=== PATIENT | female | born 1955 | race Caucasian/White ===

== ENCOUNTER 2018-02-09 14:44 | Inpatient (IN) | payer BC, OTHER ==
[2018-02-09] MEDS ORDERED: Rivaroxaban 10 MG Tab PO ONE (15:09)
--- NOTE | 2018-02-09 15:17 | EDM.PDOC ---
ED HPI GENERAL MEDICAL PROBLEM - General Chief Complaint: Respiratory Problem Stated Complaint: PE Time Seen by Provider: 02/09/18 15:10 Source of Information: Reports: Patient History Limitations: Reports: No Limitations - History of Present Illness INITIAL COMMENTS - FREE TEXT/NARRATIVE: 62-year-old female attends the ED from the [facility]. Patient was seen earlier in the walk-in clinic with a 2 week history of dyspnea on minimal exertion which was gradually worsening. This was a nonproductive cough no fever or chills. Salas is a never smoker. He denies any chest pain even with coughing. No pleuritic component to her pain no hemoptysis. No recent travel history. No history of DVT. Part of her workup included a d-dimer which was positive at 5.51 I believe. Her BNP was also mildly elevated at 300. This protuberance precipitated a CT pulmonary angiogram which was read by radiologist at [facility] in [place]. Head if he identified a large clot burden involving both lower lobes of the lungs and a small pulmonary infarct in the left lower lobe. He reports multiple filling defects within segmental and subsegmental pulmonary arteries in both the right low left lower lobes bilaterally. Additionally there is segmental pulmonary emboli within the right middle lobe there is evidence of right heart strain with deviation of the intraventricular septum to the left indicating acute pulmonary hypertension is also reflux of contrast within the hepatic veins no pleural effusions are pneumothoraces are identified. No pathologic-appearing axillary or mediastinal nodes. Visualized portions of the upper abdomen were reported to be normal. Patient has a history of hypothyroidism and hypertension and bipolar affective disorder. She reports dyspnea walking down the hallway of their home. She reports dyspnea going up half a flight of stairs i.e. 8 stairs. Onset: Gradual (Symptoms have been present for over 2 weeks and gradually worsening.) Duration: Week(s):, Getting Worse Location: Reports: Chest Quality: Reports: Other (Short of breath on minimal exertion.) Severity: Moderate (Moderate to severe) Improves with: Reports: Rest Worsens with: Reports: Movement Context: Reports: Other (Gradually worsening dyspnea over the last 2 weeks.). Denies: Activity, Exercise, Lifting, Sick Contact, Trauma Associated Symptoms: Reports: Cough, Shortness of Breath (On minimal exertion), Weakness. Denies: Confusion, Chest Pain, cough w sputum (Cough no worse than normal and is nonproductive), Diaphoresis, Fever/Chills, Headaches, Loss of Appetite, Malaise, Nausea/Vomiting, Rash, Seizure, Syncope Treatments DRUG ENFORCEMENT ADMINISTRATION AGENT: Reports: Other (see below) (Feels generally weak. No new medications.) - Related Data Allergies Allergy/AdvReac Type Severity Reaction Status Date / Time No Known Allergies Allergy Verified 02/09/18 17:37 Home Meds: Home Meds ARIPiprazole [Abilify] 10 mg PO DAILY 02/09/18 [History] Calcium Carb/Mag Ox/Zinc Sulf [Anrkbcb-Mbrbuniib-Mxof Tablet] 1 tab PO BEDTIME 02/09/18 [History] Cholecalciferol (Vitamin D3) [D3-2000] 2,000 units PO DAILY 02/09/18 [History] Cyanocobalamin (Vitamin B12) [Vitamin B12] 500 mcg PO DAILY 02/09/18 [History] Levothyroxine [Synthroid] 88 mcg PO DAILY 02/09/18 [History] Lisinopril/Hydrochlorothiazide [Lisinopril-HCTZ 10-12.5 MG] 1 tab PO ACDINNER [History] Melatonin 1 tab PO BEDTIME 02/09/18 [History] Multivitamin [Multivitamins] 1 tab PO DAILY 02/09/18 [History] Naproxen Sodium [Aleve] 220 mg PO BID 02/09/18 [History] Sertraline [Zoloft] 100 mg PO BEDTIME 02/09/18 [History] buPROPion [Wellbutrin] 100 mg PO 12 02/09/18 [History] buPROPion [Wellbutrin] 200 mg PO QAM 02/09/18 [History] Past Medical History Cardiovascular History: Reports: Hypertension Gastrointestinal History: Reports: Other (See Below) Other Gastrointestinal History: abnormal liver enzymes--- fatty liver disease. Psychiatric History: Reports: Depression (Major depression fairly well controlled with Abilify for the last year. Feels more stable on this medication and she did SSRIs. 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 Denies: Fever, Chills, Decreased Appetite, Weight Loss HEENT: Reports: Glasses Respiratory: Reports: Shortness of Breath, Cough. Denies: Wheezing, Pleuritic Chest Pain (See history of present illness), Sputum, Hemoptysis Cardiovascular: Reports: Blood Pressure Problem (Is chronically hypertensive and apparently is well controlled on lisinopril 10 mg daily), Dyspnea on Exertion (Mild edema in her lower extremities), Edema. Denies: Chest Pain, Claudication, Lightheadedness, Orthopnea, Palpitations ( particularly over the last 2 weeks.) Endocrine: Reports: Fatigue GI/Abdominal: Reports: Constipation ([place] to be secondary to medication usage.) . Denies: Abdominal Pain : Reports: Incontinence (Stress induced) Musculoskeletal: Reports: Back Pain, Joint Pain (Knees and hips at times) Skin: Reports: No Symptoms Neurological: Reports: Difficulty Walking, Weakness. Denies: Confusion, Dizziness, Headache, Numbness, Syncope, Tingling Psychiatric: Reports: Anxiety, Other (Chronic major depression she feels overall fairly well controlled on Abilify for the last year) Hematologic/Lymphatic: Reports: No Symptoms Immunologic: Reports: No Symptoms ED EXAM, GENERAL - Physical Exam Exam: See Below Exam Limited By: No Limitations General Appearance: Alert, WD/WN, Moderate Distress (She is hypoxic on room air at 85%. Placed on O2 at 4 L/m to achieve O2 sats of 97%.), Other Eye Exam: Bilateral Eye: Normal Inspection Throat/Mouth: Normal Inspection, Normal Lips, Normal Teeth, Normal Oropharynx Head: Atraumatic, Normocephalic Neck: Normal Inspection, Supple, Non-Tender, Full Range of Motion. No: Carotid Bruit, Lymphadenopathy (L), Lymphadenopathy (R) Respiratory/Chest: Lungs Clear, Normal Breath Sounds, No Accessory Muscle Use, Chest Non-Tender, Respiratory Distress (Mild tachypnea at rest 20-24/m. O2 sats 85% on room air.). No: Rales, Rhonchi, Wheezing Cardiovascular: Regular Rate, Rhythm, Other (Trace edema in both lower extremities.) Peripheral Pulses: 2+: Posterior Tibial (L), Posterior Tibial (R), Dorsalis Pedis (L), Dorsalis Pedis (R) GI/Abdominal: Normal Bowel Sounds, Soft, Non-Tender, No Organomegaly, No Abnormal Bruit, Pelvis Stable, Other (Abdominal girth limits ability to palpate solid organs.) Extremities: Pedal Edema (Trace edema both lower extremities. Graded is 1+.), Other (She does have evidence of bilateral venous insufficiency with brawny discoloration of both lower extremities.) Neurological: Alert ( No popliteal space tenderness no pain on palpation of the midline of either calf to suggest a DVT.), Oriented, CN II-XII Intact, Normal Cognition Psychiatric: Normal Affect, Normal Mood Skin Exam: Warm, Dry, Intact, Normal Color, No Rash Course - Vital Signs Last Recorded V/S: Last Vital Signs Temp 36.4 C 02/09/18 14:49 Pulse 95 02/09/18 14:49 Resp 20 02/09/18 14:49 BP 146/84 H 02/09/18 14:49 Pulse Ox 85 L 02/09/18 14:49 - Orders/Labs/Meds Orders: Active Orders 24 hr Category Date Time Status EKG Documentation Completion [RC] ASDIRECTED Care 02/09/18 16:17 Active ANTITHROMBIN ACTIVITY [REF] Routine Lab 02/09/18 15:42 Received LUPUS ANTICOAGULANT PANEL [REF] Routine Lab 02/09/18 15:42 Received PROTEIN C-FUNCTIONAL [REF] Stat Lab 02/09/18 15:16 Ordered PROTEIN S-FUNCTIONAL [REF] Stat Lab 02/09/18 15:16 Ordered VON WILLEBRAND PROFILE [REF] Stat Lab 02/09/18 15:10 Ordered EKG 12 Lead [EK] Stat Ther 02/09/18 16:17 Ordered Medication Orders Acetaminophen (Tylenol) 650 mg PO Q4H PRN PRN Reason: Pain (Mild 1-3)/fever Bisacodyl (Dulcolax) 5 mg PO DAILY PRN PRN Reason: Constipation Docusate Sodium (Colace) 100 mg PO BID PRN PRN Reason: Constipation Hydromorphone HCl (Dilaudid) 0.25 mg IVPUSH Q2H PRN PRN Reason: Pain (severe 7-10) Magnesium Hydroxide (Milk Of Magnesia) 30 ml PO Q12H PRN PRN Reason: Constipation Ondansetron HCl (Zofran Odt) 4 mg PO Q4H PRN PRN Reason: nausea, able to take PO Ondansetron HCl (Zofran) 4 mg IV Q4H PRN PRN Reason: Nausea/Vomiting Oxycodone/Acetaminophen (Percocet 325-5 Mg) 1 tab PO Q4H PRN PRN Reason: Pain (moderate 4-6) Polyethylene Glycol (Miralax) 17 gm PO DAILY PRN PRN Reason: Constipation Senna/Docusate Sodium (Senna Plus) 1 tab PO BID PRN PRN Reason: Constipation Temazepam (Restoril) 7.5 mg PO BEDTIME PRN PRN Reason: Sleep Meds: Medications Generic Name Dose Route Start Last Admin Trade Name Freq PRN Reason Stop Dose Admin Acetaminophen 650 mg 02/09/18 18:38 Tylenol PO Q4H PRN Pain (Mild 1-3)/fever Bisacodyl 5 mg 02/09/18 18:38 Dulcolax PO DAILY PRN Constipation Docusate Sodium 100 mg 02/09/18 18:38 Colace PO BID PRN Constipation Hydromorphone HCl 0.25 mg 02/09/18 18:38 Dilaudid IVPUSH Q2H PRN Pain (severe 7-10) Magnesium Hydroxide 30 ml 02/09/18 18:38 Milk Of Magnesia PO Q12H PRN Constipation Ondansetron HCl 4 mg 02/09/18 18:38 Zofran Odt PO Q4H PRN nausea, able to take PO Ondansetron HCl 4 mg 02/09/18 18:38 Zofran IV Q4H PRN Nausea/Vomiting Oxycodone/Acetaminophen 1 tab 02/09/18 18:38 Percocet 325-5 Mg PO Q4H PRN Pain (moderate 4-6) Polyethylene Glycol 17 gm 02/09/18 18:38 Miralax PO DAILY PRN Constipation Senna/Docusate Sodium 1 tab 02/09/18 18:38 Senna Plus PO BID PRN Constipation Temazepam 7.5 mg 02/09/18 18:38 Restoril PO BEDTIME PRN Sleep Discontinued Medications Generic Name Dose Route Start Last Admin Trade Name Freq PRN Reason Stop Dose Admin Rivaroxaban 20 mg 02/09/18 15:09 02/09/18 15:33 Xarelto PO 02/09/18 15:10 20 mg ONETIME ONE Administration - Radiology Interpretation Free Text/Narrative:: 62-year-old female sent across from [facility] by Dr. Butts. She had attended the clinic this morning was identified to have shortness of breath on minimal exertion for the last 2 weeks. He was 87% O2 sats on room air. Precipitated lab work which identified an elevated d-dimer at 5.5. This in turn precipitated a CT pulmonary angiogram which confirmed multiple pulmonary emboli involving all 5 lobes of her lung and a wedge-shaped infiltrate left lower lobe suggesting a pulmonary infarct. There is also evidence clinically on the CT exam that she has acute pulmonary hypertension with deviation of the midline of the heart to the left side and reflux of contrast into the hepatic veins. This indicates that the there is trouble with blood being able to return to the right side of the heart. This would suggest very high right pulmonary arterial pressures. Clot load is felt to best be very high. However her blood pressure is maintained. She is therefore not a candidate for acute thrombolytic intervention. She has no past history of DVT. She's had no pain in her legs. She is not all that active at home. She is a [id number]-uh-pukj . She is relatively asymptomatic in terms no chest pain no cough no hemoptysis. She exhibits shortness of breath on minimal exertion. She was initially placed on 4 L/m by nasal cannula of oxygen which achieved O2 sats of 97%. Subsequently reduced to 3 L/m and achieving O2 sats of 96%. Plan she'll be given 20 mg of Zaroxolyn immediately. Usually she should be treated with 15 mg twice daily for the first 3 weeks then 20 mg once daily. She will need to be admitted to the hospital primarily because of hypoxemia and need for oxygen treatment. She will have ultrasound done on both lower extremities to see if we can identify source of her pulmonary emboli.. - Re-Assessments/Exams Free Text/Narrative Re-Assessment/Exam: 02/09/18 16:10: Case discussed with Dr. Lee and patient will be admitted to the [facility] surgery floor on telemetry. 02/09/18 17:12 the initial report from the laser/electro optics technician indicates that there is some clot in the right common femoral vein but this is compressible. Rather acute. He also identified a clot in the left leg again that was nonobstructive. I will await the final radiologist's report in this regard. 02/09/18 18:52labs were already collected at [facility] and are on the chart. I had done a PT which was 16.1 and INR came back at 1.49 i.e. some degree of auto anticoagulation. PTT is slightly elevated at 34. Of note and much of this is a laboratory error or does this patient is exhibiting some signs of auto anticoagulation which would suggest a liver dysfunction. Departure - Departure Time of Disposition: 18:20 Disposition: Admitted As Inpatient 67 Condition: Serious Clinical Impression: Bilateral pulmonary embolism, Pulmonary hypertension, Elevated INR ( international normalized ratio) DVT, lower extremity, proximal Qualifiers: Chronicity: acute Laterality: right Qualified Code(s): I82.4Y1 - Acute embolism and thrombosis of unspecified deep veins of right proximal lower extremity DVT, lower extremity, distal, acute Qualifiers: Laterality: left Qualified Code(s): I82.4Z2 - Acute embolism and thrombosis of unspecified deep veins of left distal lower extremity - Discharge Information *PRESCRIPTION DRUG MONITORING PROGRAM REVIEWED*: Not Applicable *COPY OF PRESCRIPTION DRUG MONITORING REPORT IN PATIENT DAVIDSON: Not Applicable - My Orders Last 24 Hours: My Active Orders 02/09/18 15:10 VON WILLEBRAND PROFILE [REF] Stat 02/09/18 15:16 PROTEIN C-FUNCTIONAL [REF] Stat PROTEIN S-FUNCTIONAL [REF] Stat 02/09/18 15:42 ANTITHROMBIN ACTIVITY [REF] Routine LUPUS ANTICOAGULANT PANEL [REF] Routine 02/09/18 16:17 EKG Documentation Completion [RC] ASDIRECTED EKG 12 Lead [EK] Stat - Assessment/Plan Last 24 Hours: My Active Orders 02/09/18 15:10 VON WILLEBRAND PROFILE [REF] Stat 02/09/18 15:16 PROTEIN C-FUNCTIONAL [REF] Stat PROTEIN S-FUNCTIONAL [REF] Stat 02/09/18 15:42 ANTITHROMBIN ACTIVITY [REF] Routine LUPUS ANTICOAGULANT PANEL [REF] Routine 02/09/18 16:17 EKG Documentation Completion [RC] ASDIRECTED EKG 12 Lead [EK] Stat
--- NOTE | 2018-02-09 17:47 | US ---
Bilateral lower extremity deep venous ultrasound: Duplex and color flow imaging was obtained within the right and left common femoral, proximal greater saphenous, superficial femoral, popliteal, posterior tibial and peroneal veins. Technologist's note: Technically difficult study due to body habitus Findings: Partially occluding thrombus is identified within the right common femoral vein. Partially occluding thrombus is seen within the left popliteal vein. Intraluminal material is seen with lack of compression noted within the proximal greater saphenous vein on the right side which is felt compatible with obstructing thrombus. Other veins show normal phasic flow, augmentation and compression. Impression: 1. Partially occluding clot within the right common femoral vein with occluding clot within the proximal right greater saphenous vein. 2. Partially occluding clot within the left popliteal vein. Diagnostic code #5
[2018-02-09] MEDS ORDERED: Magnesium Hydroxide 400 MG/5 ML Susp 30 ML Cup PO PRN (18:38)
[2018-02-09] MEDS ORDERED: Ondansetron 4 MG/2 ML SDV IV PRN (18:38)
[2018-02-09] MEDS ORDERED: Acetaminophen 325 MG Tab PO PRN (18:38)
[2018-02-09] MEDS ORDERED: Docusate Sodium 100 MG Cap PO PRN (18:38)
[2018-02-09] MEDS ORDERED: Acetaminophen/oxyCODONE 325-5 MG Tab PO PRN (18:38)
[2018-02-09] MEDS ORDERED: HYDROmorphone 0.5 MG/0.5 ML SYRINGE IVPUSH PRN (18:38)
[2018-02-09] MEDS ORDERED: Bisacodyl 5 MG Tab PO PRN (18:38)
[2018-02-09] MEDS ORDERED: Temazepam 7.5 MG Cap PO PRN (18:38)
[2018-02-09] MEDS ORDERED: Polyethylene Glycol 3350 Powder 17 GM Packet PO PRN (18:38)
[2018-02-09] MEDS ORDERED: Ondansetron 4 MG Tab.DIS PO PRN (18:38)
[2018-02-09] MEDS ORDERED: HYDROmorphone 0.5 MG/0.5 ML Syringe IVPUSH PRN (18:50)
--- NOTE | 2018-02-09 19:05 | PCM.HP ---
H&P History of Present Illness - General Date of Service: 02/09/18 Admit Problem/Dx: Admission Diagnosis/Problem Admission Diagnosis/Problem Pulmonary embolism Source of Information: Patient, Provider History Limitations: Reports: No Limitations - History of Present Illness Initial Comments - Free Text/Narative: HPI: This is a 62 yo female with past medical hx/o HTN, abnormal liver enzymes/Fatty liver Dz, Bipolar affective disorder, Depression, Insomnia, Hypothyroidism, Morbid Obesity who was sent over from [facility] for bilateral PE and hypoxia 85% RA. She c/o 2 week gradually worsening dyspnea w/ minimal exertion and nonproductive cough. She denies F/C, pleuritic CP, hemoptysis, leg pain. She denies any recent travel or h/o DVT. Her workup at [facility] showed positive D-dimer of 5.51, slightly elevated BNP at 300. CT pulmonary angiogram read by Ramirezloly Ratliff shows bilateral PE with small infarct in left lower lobe and acute pulmonary HTN. Her workup in the ED shows elevated coagulation studies of PT 16.1, INR 1.49, aPTT 34. EKG in ED shows sinus rhythm with old anteroseptal infarct; no evidence of Afib or acute injury. Doppler U/S in ED shows partially occluding clot to right common femoral vein and left popliteal vein. Von Willebrand, Protein C and S, Antithrombin activity, Lupus pending. She is subsequently admitted to the medical floor. She is a Full Code. Her PCP is Dr. Mcginnis. - Related Data Allergies/Adverse Reactions: Allergies Allergy/AdvReac Type Severity Reaction Status Date / Time No Known Allergies Allergy Verified 02/09/18 17:37 Home Medications: Home Meds ARIPiprazole [Abilify] 10 mg PO DAILY 02/09/18 [History] Calcium Carb/Mag Ox/Zinc Sulf [Mclsrko-Uciyppjjk-Thig Tablet] 1 tab PO BEDTIME 02/09/18 [History] Cholecalciferol (Vitamin D3) [D3-2000] 2,000 units PO DAILY 02/09/18 [History] Cyanocobalamin (Vitamin B12) [Vitamin B12] 500 mcg PO DAILY 02/09/18 [History] Levothyroxine [Synthroid] 88 mcg PO DAILY 02/09/18 [History] Lisinopril/Hydrochlorothiazide [Lisinopril-HCTZ 10-12.5 MG] 1 tab PO ACDINNER [History] Melatonin 1 tab PO BEDTIME 02/09/18 [History] Multivitamin [Multivitamins] 1 tab PO DAILY 02/09/18 [History] Naproxen Sodium [Aleve] 220 mg PO BID 02/09/18 [History] Sertraline [Zoloft] 100 mg PO BEDTIME 02/09/18 [History] buPROPion [Wellbutrin] 100 mg PO 12 02/09/18 [History] buPROPion [Wellbutrin] 200 mg PO QAM 02/09/18 [History] Past Medical History HEENT History: Reports: Cataract, Other (See Below) Other HEENT History: wears glasses Cardiovascular History: Reports: Hypertension Other Cardiovascular History: current pulmonary emboli Respiratory History: Reports: Other (See Below) Other Respiratory History: current pulmonary emboli Gastrointestinal History: Reports: Other (See Below) Other Gastrointestinal History: abnormal liver enzymes--- fatty liver disease. Genitourinary History: Reports: Other (See Below) Other Genitourinary History: urinary frequency Musculoskeletal History: Reports: Osteoarthritis, Other (See Below) Other Musculoskeletal History: restless legs Psychiatric History: Reports: Depression (Major depression fairly well controlled with Abilify for the last year. Feels more stable on this medication and she did SSRIs. 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 Denies: Fever, Chills HEENT: Reports: Glasses Pulmonary: Reports: Shortness of Breath, Cough. Denies: Pleuritic Chest Pain, Hemoptysis Cardiovascular: Reports: Dyspnea on Exertion (minimal exertion), Edema (1+ bilaterally), Blood Pressure Problem. Denies: Chest Pain, Palpitations, Orthopnea Gastrointestinal: Reports: No Symptoms. Denies: Abdominal Pain, Diarrhea, Nausea, Vomiting Genitourinary: Reports: No Symptoms Musculoskeletal: Reports: Back Pain, Joint Pain (knees, hips intermittent) Skin: Reports: No Symptoms Psychiatric: Reports: Anxiety Neurological: Reports: Difficulty Walking, Weakness Hematologic/Lymphatic: Reports: No Symptoms Immunologic: Reports: No Symptoms Exam - Exam Exam: See Below - Vital Signs Vital Signs: Last Vital Signs Temp 97.7 F 02/09/18 17:35 Pulse 80 02/09/18 17:35 Resp 20 02/09/18 17:35 BP 132/82 02/09/18 17:35 Pulse Ox 92 L 02/09/18 18:38 Weight: 265 lb 3.2 oz - Exam Quality Assessment: Supplemental Oxygen (2L NC), DVT Prophylaxis. No: Urinary Catheter General: Alert, Oriented, Cooperative, Mild Distress HEENT: PERRLA, Hearing Intact, Mucosa Moist & [place], Nares Patent, Normal Nasal Septum, Posterior Pharynx Clear, Conjunctiva Clear, EOMI, EACs Clear, TMs Clear Neck: Supple, Trachea Midline, 2 Lungs: Clear to Auscultation. No: Normal Respiratory Effort (tachypneic), Rales , Rhonchi, Wheezing Cardiovascular: Regular Rate, Regular Rhythm GI/Abdominal Exam: Normal Bowel Sounds, Soft, Non-Tender, Pelvis Stable (Female) Exam: Deferred Rectal (Female) Exam: Deferred Back Exam: Normal Inspection, Full Range of Motion, NT Extremities: Normal Range of Motion, Non-Tender, Normal Capillary Refill, Pedal Edema (1+ bilaterally), Other (bilateral venous insufficiency; brawny) Peripheral Pulses: 1+: Posterior Tibial (L), Posterior Tibial (R), Dorsalis Pedis (L), Dorsalis Pedis (R) Skin: Warm, Dry, Intact Neurological: Cranial Nerves Intact (grossly) Neuro Extensive - Mental Status: Alert, Oriented x3, Normal Mood/Affect, Normal Cognition Psychiatric: Alert, Normal Affect, Normal Mood - Patient Data Lab Results Last 24 hrs: Laboratory Results - last 24 hr 02/09/18 Range/Units 17:55 PT 16.1 H (9.5-12.1) SECONDS INR 1.49 APTT 34 H (24-31) SECONDS Result Diagrams: 02/09/18 17:55 02/09/18 17:55 - Problem List (1) Bilateral pulmonary embolism SNOMED Code(s): 38456027 ICD Code: I26.99 - OTHER PULMONARY EMBOLISM WITHOUT ACUTE COR PULMONALE Status: Acute Priority: High Current Visit: Yes (2) DVT, lower extremity, distal, acute SNOMED Code(s): 403784474334 ICD Code: I82.4Z9 - ACUTE EMBLSM AND THOMBOS UNSP DEEP VN UNSP DISTAL LOW EXTRM Status: Acute Priority: High Current Visit: Yes Qualifiers: Laterality: left Qualified Code(s): I82.4Z2 - Acute embolism and thrombosis of unspecified deep veins of left distal lower extremity (3) DVT, lower extremity, proximal SNOMED Code(s): 900881082 ICD Code: I82.4Y9 - ACUTE EMBLSM AND THOMBOS UNSP DEEP VN UNSP PROX LOW EXTRM Status: Acute Priority: High Current Visit: Yes Qualifiers: Chronicity: acute Laterality: right Qualified Code(s): I82.4Y1 - Acute embolism and thrombosis of unspecified deep veins of right proximal lower extremity (4) Elevated INR (international normalized ratio) SNOMED Code(s): 502607511 ICD Code: R79.1 - ABNORMAL COAGULATION PROFILE Status: Acute Priority: High Current Visit: Yes (5) Pulmonary hypertension SNOMED Code(s): 07209878 ICD Code: I27.20 - PULMONARY HYPERTENSION, UNSPECIFIED Status: Acute Priority: High Current Visit: Yes Problem List Initiated/Reviewed/Updated: Yes Orders Last 24hrs: Active Orders 24 hr Category Date Time Status Admission Status [Patient Status] [ADT] Routine ADT 02/09/18 16:45 Active Ambulate [RC] ASDIRECTED Care 02/09/18 18:38 Ordered Cardiac Monitoring [RC] INTERMITTENT Care 02/09/18 18:39 Ordered EKG Documentation Completion [RC] ASDIRECTED Care 02/09/18 16:17 Active Height and Weight [RC] DAILY Care 02/09/18 18:38 Ordered Intake and Output [RC] QSHIFT Care 02/09/18 18:39 Ordered May Shower [RC] ASDIRECTED Care 02/09/18 18:38 Ordered Oxygen Therapy [RC] PRN Care 02/09/18 18:38 Ordered Pulse Oximetry [RC] PRN Care 02/09/18 18:39 Ordered VTE/DVT Education [RC] PER UNIT ROUTINE Care 02/09/18 18:38 Ordered Vital Signs [RC] Q4H Care 02/09/18 18:38 Ordered Consult to Dietary [Consult to Maintenance Specialist] [CONS] Cons 02/09/18 18:53 Ordered Routine Consult to Spiritual Care [CONS] Routine Cons 02/09/18 18:38 Ordered OT Evaluation and Treatment [CONS] Routine Cons 02/09/18 18:38 Ordered PT Evaluation and Treatment [CONS] Routine Cons 02/09/18 18:38 Ordered Respiratory Care Assess and Treatment [CONS] Routine Cons 02/09/18 18:38 Ordered Heart Healthy Diet [DIET] Diet 02/10/18 Breakfast Active Abdomen wo Cont [CT] Routine Exams 02/09/18 18:49 Ordered Echo Comp wo Cont [US] Routine Exams 02/09/18 18:44 Ordered ANTITHROMBIN ACTIVITY [REF] Routine Lab 02/09/18 15:42 Received BASIC METABOLIC PANEL,BMP [CHEM] AM Lab 02/10/18 05:11 Ordered BASIC METABOLIC PANEL,BMP [CHEM] AM Lab 02/11/18 05:11 Ordered BASIC METABOLIC PANEL,BMP [CHEM] AM Lab 02/12/18 05:11 Ordered BASIC METABOLIC PANEL,BMP [CHEM] AM Lab 02/13/18 05:11 Ordered BASIC METABOLIC PANEL,BMP [CHEM] AM Lab 02/14/18 05:11 Ordered C-REACTIVE PROTEIN [CHEM] AM Lab 02/10/18 05:11 Ordered C-REACTIVE PROTEIN [CHEM] AM Lab 02/11/18 05:11 Ordered C-REACTIVE PROTEIN [CHEM] AM Lab 02/12/18 05:11 Ordered C-REACTIVE PROTEIN [CHEM] AM Lab 02/13/18 05:11 Ordered C-REACTIVE PROTEIN [CHEM] AM Lab 02/14/18 05:11 Ordered CBC WITH AUTO DIFF [HEME] AM Lab 02/10/18 05:11 Ordered CBC WITH AUTO DIFF [HEME] AM Lab 02/11/18 05:11 Ordered CBC WITH AUTO DIFF [HEME] AM Lab 02/12/18 05:11 Ordered CBC WITH AUTO DIFF [HEME] AM Lab 02/13/18 05:11 Ordered CBC WITH AUTO DIFF [HEME] AM Lab 02/14/18 05:11 Ordered LUPUS ANTICOAGULANT PANEL [REF] Routine Lab 02/09/18 15:42 Received MAGNESIUM [CHEM] AM Lab 02/10/18 05:11 Ordered MAGNESIUM [CHEM] AM Lab 02/11/18 05:11 Ordered MAGNESIUM [CHEM] AM Lab 02/12/18 05:11 Ordered MAGNESIUM [CHEM] AM Lab 02/13/18 05:11 Ordered MAGNESIUM [CHEM] AM Lab 02/14/18 05:11 Ordered PROTEIN C-FUNCTIONAL [REF] Stat Lab 02/09/18 15:16 Ordered PROTEIN S-FUNCTIONAL [REF] Stat Lab 02/09/18 15:16 Ordered TSH [CHEM] Routine Lab 02/09/18 18:44 Ordered VON WILLEBRAND PROFILE [REF] Stat Lab 02/09/18 15:10 Ordered ARIPiprazole Med 02/10/18 09:00 Ordered 10 mg PO DAILY Acetaminophen [Tylenol] Med 02/09/18 18:38 Ordered 650 mg PO Q4H PRN Acetaminophen/oxyCODONE [Percocet 325-5 MG] Med 02/09/18 18:38 Ordered 1 tab PO Q4H PRN Bisacodyl [Dulcolax] Med 02/09/18 18:38 Ordered 5 mg PO DAILY PRN Calcium Carb/Mag Ox/Zinc Sulf [Eiugoci-Rfgnadkpv-Nrhl Med 02/09/18 21:00 Ordered Tablet] 1 tab PO BEDTIME Cholecalciferol (Vitamin D3) [D3-2000] Med 02/10/18 09:00 Ordered 2,000 units PO DAILY Cyanocobalamin (Vitamin B12) Med 02/10/18 09:00 Ordered 500 mcg PO DAILY Docusate Sodium [Colace] Med 02/09/18 18:38 Ordered 100 mg PO BID PRN Docusate Sodium/Sennosides [Senna Plus] Med 02/09/18 18:38 Ordered 1 tab PO BID PRN HYDROmorphone [Dilaudid] Med 02/09/18 18:50 Active 0.25 mg IVPUSH Q2H PRN Levothyroxine [Synthroid] Med 02/10/18 09:00 Ordered 88 mcg PO DAILY Lisinopril/Hydrochlorothiazide Med 02/10/18 16:00 Ordered 1 tab PO ACDINNER Magnesium Hydroxide [Milk of Magnesia] Med 02/09/18 18:38 Ordered 30 ml PO Q12H PRN Multivitamin [Multivitamins] Med 02/10/18 09:00 Ordered 1 tab PO DAILY Ondansetron [Zofran ODT] Med 02/09/18 18:38 Ordered 4 mg PO Q4H PRN Ondansetron [Zofran] Med 02/09/18 18:38 Ordered 4 mg IV Q4H PRN Polyethylene Glycol 3350 [MiraLAX] Med 02/09/18 18:38 Ordered 17 gm PO DAILY PRN Rivaroxaban [Xarelto] Med 02/09/18 21:00 Ordered 15 mg PO BID Sertraline Med 02/09/18 21:00 Ordered 100 mg PO BEDTIME Temazepam [Restoril] Med 02/09/18 18:38 Ordered 7.5 mg PO BEDTIME PRN buPROPion Med 02/10/18 12:00 Ordered 100 mg PO 12 buPROPion Med 02/10/18 08:00 Ordered 200 mg PO QAM hydroCHLOROthiazide Med 02/10/18 16:00 Active 12.5 mg PO ACDINNER Antiembolic Hose [OM.PC] Per Unit Routine Oth 02/09/18 18:40 Ordered EKG 12 Lead [EK] Stat Ther 02/09/18 16:17 Ordered Medication Orders Acetaminophen (Tylenol) 650 mg PO Q4H PRN PRN Reason: Pain (Mild 1-3)/fever Aripiprazole (Abilify) 10 mg PO DAILY MALIK Bisacodyl (Dulcolax) 5 mg PO DAILY PRN PRN Reason: Constipation Cholecalciferol (Vitamin D3) 2,000 units PO DAILY [facility] Cyanocobalamin (Vitamin B12) 500 mcg PO DAILY MALIK Docusate Sodium (Colace) 100 mg PO BID PRN PRN Reason: Constipation Hydrochlorothiazide (Hydrochlorothiazide) 12.5 mg PO ACDINNER MALIK Hydromorphone HCl (Dilaudid) 0.25 mg IVPUSH Q2H PRN PRN Reason: Pain (severe 7-10) Levothyroxine Sodium (Synthroid) 88 mcg PO ACBREAKFAST MALIK Lisinopril (Prinivil) 10 mg PO ACDINNER MALIK Magnesium Hydroxide (Milk Of Magnesia) 30 ml PO Q12H PRN PRN Reason: Constipation Multivitamins (Thera) 1 each PO DAILY MALIK Non-Formulary Medication (Bupropion) 100 mg PO 12 MALIK Non-Formulary Medication (Bupropion) 200 mg PO QAM MALIK Non-Formulary Medication (Calcium Carb/Mag Ox/Zinc Sulf [Wvtmbue-Gkkpmvsiy-Brek Tablet]) 1 tab PO BEDTIME MALIK Ondansetron HCl (Zofran Odt) 4 mg PO Q4H PRN PRN Reason: nausea, able to take PO Ondansetron HCl (Zofran) 4 mg IV Q4H PRN PRN Reason: Nausea/Vomiting Oxycodone/Acetaminophen (Percocet 325-5 Mg) 1 tab PO Q4H PRN PRN Reason: Pain (moderate 4-6) Polyethylene Glycol (Miralax) 17 gm PO DAILY PRN PRN Reason: Constipation Rivaroxaban (Xarelto) 15 mg PO BID MALIK Senna/Docusate Sodium (Senna Plus) 1 tab PO BID PRN PRN Reason: Constipation Sertraline HCl (Zoloft) 100 mg PO BEDTIME MALIK Temazepam (Restoril) 7.5 mg PO BEDTIME PRN PRN Reason: Sleep Assessment/Plan Comment:: I/P: Acute: Bilateral Pulmonary Embolism * 2 week h/o gradually worsening dyspnea w/ minimal exertion, nonproductive cough, no F/C, no pleuritic CP, no hemoptysis, no leg pain. * Risk factors: Morbid Obesity, immobilization (not very active at home) * No: recent surgery, travel, trauma, initiation of hormone therapy (stopped estrogen therapy over 1 year ago for menopause), active cancer, h/o DVT, Afib. She has never smoked. * Hypoxic 85% on RA--> 92% 2L NC * Worked up at [facility]: * D-dimer which was positive at 5.51 * BNP was also mildly elevated at 300 * CT pulmonary angiogram (read by radiologist at [facility]): * Large clot burden involving both lower lobes of the lungs and a small pulmonary infarct in the left lower lobe. * Multiple filling defects within segmental and subsegmental pulmonary arteries in both the right and left lower lobes bilaterally. * Segmental pulmonary emboli within the right middle lobe. * Evidence of right heart strain with deviation of the intraventricular septum to the left indicating acute pulmonary hypertension. * Reflux of contrast within the hepatic veins, no pleural effusions are pneumothoraces are identified. No pathologic-appearing axillary or mediastinal nodes. Visualized portions of the upper abdomen were reported to be normal. * EKG in ED--> Sinus rhythm, old anteroseptal infarct; no evidence of Afib * Doppler U/S in ED: * 1. Partially occluding clot within the right common femoral vein with occluding clot within the proximal right greater saphenous vein. * 2. Partially occluding clot within the left popliteal vein. * Xaralto 20mg PO started in ED--> Continue Xaralto 15mg BID starting @2100 x21 days followed by 20mg daily * Von Willebrand, Protein C and S, Antithrombin activity, Lupus pending * ECHO in AM * CT abdomen r/o malignancy pending Pulmonary HTN * Likely 2/2 above * Indicated by CT angiogram * Unsure if SHAHAB; recommend sleep study * ECHO in AM Elevated Coagulation Studies * PT 16.1, INR 1.49, PTT 34 S/P VTACH * 16 beats VTACH at around 18:20 this evening * Asymptomatic, no history of prior episodes * Monitor on telemetry Chronic: HTN Abnormal liver enzymes/Fatty liver Dz Bipolar affective disorder Depression Insomnia Hypothyroidism * TSH pending Morbid Obesity BMI 45.5 Plan: Transferred to Med Surg She remains stable Anticoagulation Other orders as indicated above Routine AM labs Heart Healthy Diet DVT Prophylaxis: Xaralto GI Prophylaxis: Pepcid Code Status: Full Code; PCP: Dr. Mcginnis
[2018-02-09] MEDS: Famotidine 20 MG Tab PO SCH (20:12)
[2018-02-09] MEDS: Rivaroxaban 10 MG Tab PO SCH (20:13)
[2018-02-09] MEDS ORDERED: [UNRECOGNIZED DRUG - OTHER] PO SCH (21:00)
[2018-02-09] MEDS ORDERED: ZINC SULF PO SCH (21:00)
[2018-02-09] MEDS ORDERED: Sertraline 50 MG Tab PO SCH (21:00)
[2018-02-09] MEDS ORDERED: CALCIUM CARB PO SCH (21:00)
[2018-02-09] MEDS ORDERED: MAG OX PO SCH (21:00)
[2018-02-09] MEDS ORDERED: LORazepam 2 MG/ML SDV IVPUSH ONE (23:24)
[2018-02-09] MEDS ORDERED: Temazepam 7.5 MG Cap PO ONE (23:25)
[2018-02-09] MEDS ORDERED: Pramipexole 0.25 MG Tab PO ONE (23:45)
[2018-02-10] MEDS ORDERED: Levothyroxine 88 MCG Tab PO SCH (06:00)
[2018-02-10] MEDS ORDERED: buPROPion 100 MG Tab.SR PO SCH ×2 (08:00→12:00)
[2018-02-10] MEDS: Cholecalciferol (Vitamin D3) 1,000 Unit Tab PO SCH (08:49)
[2018-02-10] MEDS: Famotidine 20 MG Tab PO SCH ×2 (08:49→21:38)
[2018-02-10] MEDS: ARIPiprazole 10 MG Tab PO SCH (08:49)
[2018-02-10] MEDS: Multivitamins,Therapeutic Tab PO SCH (08:49)
[2018-02-10] MEDS: Cyanocobalamin (Vitamin B12) 1,000 MCG Tab PO SCH (08:50)
[2018-02-10] MEDS: Rivaroxaban 10 MG Tab PO SCH ×2 (08:51→21:39)
[2018-02-10] MEDS ORDERED: Magnesium Oxide 400 MG Tab PO ONE (09:00)
[2018-02-10] MEDS ORDERED: Iopamidol 612 MG/ML 150 ML Bottle IVPUSH ONE (09:04)
[2018-02-10] MEDS ORDERED: Sodium Chloride 0.9% 250 ML IV SCH (09:04)
[2018-02-10] MEDS ORDERED: Sodium Chloride 0.9% 10 ML Syringe FLUSH PRN (09:04)
[2018-02-10] MEDS ORDERED: Diatrizoate Meglumine/Diatrizoate Sodium 37% 120 ML Bottle PO ONE (09:04)
[2018-02-10] MEDS ORDERED: Sodium Chloride 0.9% 100 ML IV SCH (11:15)
--- NOTE | 2018-02-10 12:25 | PCM.PN ---
- General Info Date of Service: 02/10/18 Admission Dx/Problem (Free Text): Admission Diagnosis/Problem Admission Diagnosis/Problem Pulmonary embolism Subjective Update: Follow Up Functional Status: Reports: Pain Controlled, Tolerating Diet, Ambulating, Urinating - Review of Systems General: Reports: Fatigue, Malaise. Denies: Fever, Chills HEENT: Reports: No Symptoms Pulmonary: Reports: Shortness of Breath Cardiovascular: Reports: Edema. Denies: Chest Pain, Dyspnea on Exertion, Lightheadedness Gastrointestinal: Denies: Abdominal Pain, Nausea, Vomiting Genitourinary: Reports: No Symptoms Musculoskeletal: Reports: No Symptoms Skin: Denies: Cyanosis, Mottled, Pallor, Diaphoresis, Rash Neurological: Reports: Gait Disturbance. Denies: Confusion, Difficulty Walking , Weakness Psychiatric: Denies: Depression, Agitation, Hallucinations Systems Review Comment:: She did not rest well last night due to restless leg (chronic but worse last night). She was given, restoril low dose ativan and mirapex but did not help. Her vitals area stable. Her Mg is light low at 1.7. Her A1C is 6.70, TSH is 8.341 and HDL is slightly low at 24 on lipid panel. - Patient Data Vitals - Most Recent: Last Vital Signs Temp 36.2 C 02/10/18 08:43 Pulse 86 02/10/18 08:43 Resp 20 02/10/18 08:43 BP 134/76 02/10/18 08:43 Pulse Ox 95 02/10/18 08:00 Weight - Most Recent: 121.608 kg I&O - Last 24 Hours: Intake & Output 02/09/18 02/10/18 02/10/18 22:59 06:59 14:59 Intake Total 240 800 120 Balance 240 800 120 Lab Results Last 24 Hours: Laboratory Results - last 24 hr 02/09/18 02/09/18 02/09/18 Range/Units 17:55 17:55 17:55 WBC 11.55 H (3.98-10.04) K/mm3 RBC 5.13 (3.98-5.22) M/mm3 Hgb 14.4 (11.2-15.7) gm/L Hct 44.7 (34.1-44.9) % MCV 87.1 (79.4-94.8) fl MCH 28.1 (25.6-32.2) pg MCHC 32.2 (32.2-35.5) g/dl RDW Std Deviation 49.3 H (36.4-46.3) fL Plt Count 360 (182-369) K/mm3 MPV 11.1 (9.4-12.3) fl Neut % (Auto) 69.5 (34.0-71.1) % Lymph % (Auto) 18.8 L (19.3-51.7) % Bath % (Auto) 7.7 (4.7-12.5) % Eos % (Auto) 2.6 (0.7-5.8) Baso % (Auto) 1.0 (0.1-1.2) % Neut # (Auto) 8.02 H (1.56-6.13) K/mm3 Lymph # (Auto) 2.17 (1.18-3.74) K/mm3 Bath # (Auto) 0.89 H (0.24-0.36) K/mm3 Eos # (Auto) 0.30 (0.04-0.36) K/mm3 Baso # (Auto) 0.12 H (0.01-0.08) K/mm3 Manual Slide Review Abnormal smear PT 16.1 H (9.5-12.1) SECONDS INR 1.49 APTT 34 H (24-31) SECONDS Sodium (136-145) mEq/L Potassium (3.5-5.1) mEq/L Chloride (98-107) mEq/L Carbon Dioxide (21-32) mEq/L Anion Gap (5-15) BUN (7-18) mg/dL Creatinine (0.55-1.02) mg/dL Est Cr Clr Drug Dosing mL/min Estimated GFR (MDRD) (>60) mL/min BUN/Creatinine Ratio (14-18) Glucose (80-115) mg/dL Hemoglobin A1c (4.50-6.20) % Calcium (8.5-10.1) mg/dL Magnesium (1.8-2.4) mg/dl Total Bilirubin (0.2-1.0) mg/dL AST (15-37) U/L ALT (14-59) U/L Alkaline Phosphatase (46-116) U/L C-Reactive Protein (<1.0) mg/dL NT-Pro-B Natriuret Pep (0-125) pg/mL Total Protein (6.4-8.2) g/dl Albumin (3.4-5.0) g/dl Globulin gm/dL Albumin/Globulin Ratio (1-2) Triglycerides (<150) mg/dL Cholesterol (<200) mg/dL LDL Cholesterol Direct (<100) mg/dL HDL Cholesterol (40-59) mg/dL TSH 3rd Generation 8.341 H (0.358-3.74) uIU/mL 02/09/18 02/09/18 02/10/18 Range/Units 17:55 17:55 06:05 WBC 11.61 H (3.98-10.04) K/mm3 RBC 4.95 (3.98-5.22) M/mm3 Hgb 13.6 (11.2-15.7) gm/L Hct 42.7 (34.1-44.9) % MCV 86.3 (79.4-94.8) fl MCH 27.5 (25.6-32.2) pg MCHC 31.9 L (32.2-35.5) g/dl RDW Std Deviation 48.4 H (36.4-46.3) fL Plt Count 365 (182-369) K/mm3 MPV 10.7 (9.4-12.3) fl Neut % (Auto) 64.8 (34.0-71.1) % Lymph % (Auto) 19.0 L (19.3-51.7) % Bath % (Auto) 8.1 (4.7-12.5) % Eos % (Auto) 6.4 H (0.7-5.8) Baso % (Auto) 1.2 (0.1-1.2) % Neut # (Auto) 7.52 H (1.56-6.13) K/mm3 Lymph # (Auto) 2.21 (1.18-3.74) K/mm3 Bath # (Auto) 0.94 H (0.24-0.36) K/mm3 Eos # (Auto) 0.74 H (0.04-0.36) K/mm3 Baso # (Auto) 0.14 H (0.01-0.08) K/mm3 Manual Slide Review Abnormal smear PT (9.5-12.1) SECONDS INR APTT (24-31) SECONDS Sodium 137 (136-145) mEq/L Potassium 4.0 (3.5-5.1) mEq/L Chloride 100 (98-107) mEq/L Carbon Dioxide 20 L (21-32) mEq/L Anion Gap 21.0 H (5-15) BUN 40 H (7-18) mg/dL Creatinine 1.3 H (0.55-1.02) mg/dL Est Cr Clr Drug Dosing 39.24 mL/min Estimated GFR (MDRD) 42 (>60) mL/min BUN/Creatinine Ratio 30.8 H (14-18) Glucose 113 (80-115) mg/dL Hemoglobin A1c (4.50-6.20) % Calcium 9.5 (8.5-10.1) mg/dL Magnesium (1.8-2.4) mg/dl Total Bilirubin 1.0 (0.2-1.0) mg/dL AST 55 H (15-37) U/L ALT 89 H (14-59) U/L Alkaline Phosphatase 148 H (46-116) U/L C-Reactive Protein 5.0 H* (<1.0) mg/dL NT-Pro-B Natriuret Pep 2267 H (0-125) pg/mL Total Protein 7.1 (6.4-8.2) g/dl Albumin 3.5 (3.4-5.0) g/dl Globulin 3.6 gm/dL Albumin/Globulin Ratio 1.0 (1-2) Triglycerides (<150) mg/dL Cholesterol (<200) mg/dL LDL Cholesterol Direct (<100) mg/dL HDL Cholesterol (40-59) mg/dL TSH 3rd Generation (0.358-3.74) uIU/mL 02/10/18 02/10/18 Range/Units 06:05 06:05 WBC (3.98-10.04) K/mm3 RBC (3.98-5.22) M/mm3 Hgb (11.2-15.7) gm/L Hct (34.1-44.9) % MCV (79.4-94.8) fl MCH (25.6-32.2) pg MCHC (32.2-35.5) g/dl RDW Std Deviation (36.4-46.3) fL Plt Count (182-369) K/mm3 MPV (9.4-12.3) fl Neut % (Auto) (34.0-71.1) % Lymph % (Auto) (19.3-51.7) % Bath % (Auto) (4.7-12.5) % Eos % (Auto) (0.7-5.8) Baso % (Auto) (0.1-1.2) % Neut # (Auto) (1.56-6.13) K/mm3 Lymph # (Auto) (1.18-3.74) K/mm3 Bath # (Auto) (0.24-0.36) K/mm3 Eos # (Auto) (0.04-0.36) K/mm3 Baso # (Auto) (0.01-0.08) K/mm3 Manual Slide Review PT (9.5-12.1) SECONDS INR APTT (24-31) SECONDS Sodium 132 L (136-145) mEq/L Potassium 3.6 (3.5-5.1) mEq/L Chloride 98 (98-107) mEq/L Carbon Dioxide 24 (21-32) mEq/L Anion Gap 13.6 (5-15) BUN 37 H (7-18) mg/dL Creatinine 1.2 H (0.55-1.02) mg/dL Est Cr Clr Drug Dosing 42.51 mL/min Estimated GFR (MDRD) 46 (>60) mL/min BUN/Creatinine Ratio 30.8 H (14-18) Glucose 113 (80-115) mg/dL Hemoglobin A1c 6.70 H (4.50-6.20) % Calcium 8.9 (8.5-10.1) mg/dL Magnesium 1.7 L (1.8-2.4) mg/dl Total Bilirubin (0.2-1.0) mg/dL AST (15-37) U/L ALT (14-59) U/L Alkaline Phosphatase (46-116) U/L C-Reactive Protein 4.6 H* (<1.0) mg/dL NT-Pro-B Natriuret Pep (0-125) pg/mL Total Protein (6.4-8.2) g/dl Albumin (3.4-5.0) g/dl Globulin gm/dL Albumin/Globulin Ratio (1-2) Triglycerides 117 (<150) mg/dL Cholesterol 136 (<200) mg/dL LDL Cholesterol Direct 100 (<100) mg/dL HDL Cholesterol 24.0 L (40-59) mg/dL TSH 3rd Generation (0.358-3.74) uIU/mL Med Orders - Current: Current Medications Acetaminophen (Tylenol) 650 mg PO Q4H PRN PRN Reason: Pain (Mild 1-3)/fever Aripiprazole (Abilify) 10 mg PO DAILY [facility] Last Admin: 02/10/18 08:49 Dose: 10 mg Bisacodyl (Dulcolax) 5 mg PO DAILY PRN PRN Reason: Constipation Bupropion HCl (Wellbutrin Sr) 100 mg PO TIDAC [facility] Bupropion HCl (Wellbutrin Sr) 100 mg PO ONETIME ONE Stop: 02/10/18 12:31 Cholecalciferol (Vitamin D3) 2,000 units PO DAILY [facility] Last Admin: 02/10/18 08:49 Dose: 2,000 units Cyanocobalamin (Vitamin B12) 500 mcg PO DAILY [facility] Last Admin: 02/10/18 08:50 Dose: 500 mcg Docusate Sodium (Colace) 100 mg PO BID PRN PRN Reason: Constipation Famotidine (Pepcid) 20 mg PO BID [facility] Last Admin: 02/10/18 08:49 Dose: 20 mg [facility]chlorothiaz[facility]) [facility] Hydromorphone HCl (Dilaudid) 0.25 mg IVPUSH Q2H PRN PRN Reason: Pain (severe 7-10) Sodium Chloride (Normal Saline) 100 mls @ 60 mls/hr IV ASDIRECTED [facility] Stop: 02/10/18 13:00 Last Admin: 02/10/18 11:54 Dose: 60 mls/hr Insulin Human Lispro (Humalog) 0 unit SUBCUT QIDACANDBED [facility]; Protocol Levothyroxine Sodium (Synthroid) 88 mcg PO ACBREAKFAST [facility] Last Admin: 02/10/18 06:13 Dose: 88 mcg Lisinopril (Prinivil) 10 mg PO ACDINNER [facility] Magnesium Hydroxide (Milk Of Magnesia) 30 ml PO Q12H PRN PRN Reason: Constipation Magnesium Sulfate (Pharmacy To Dose - Magnesium Replacement) 0 dose .XX ASDIRECTED PRN PRN Reason: RX TO WATCH MAG LEVELS Metformin HCl (Glucophage) 500 mg PO BIDMEALS [facility] Multivitamins (Thera) 1 each PO DAILY [facility] Last Admin: 02/10/18 08:49 Dose: 1 each Naproxen (Naprosyn) 187.5 mg PO BID [facility] Ondansetron HCl (Zofran Odt) 4 mg PO Q4H PRN PRN Reason: nausea, able to take PO Ondansetron HCl (Zofran) 4 mg IV Q4H PRN PRN Reason: Nausea/Vomiting Oxycodone/Acetaminophen (Percocet 325-5 Mg) 1 tab PO Q4H PRN PRN Reason: Pain (moderate 4-6) Polyethylene Glycol (Miralax) 17 gm PO DAILY PRN PRN Reason: Constipation Potassium Chloride (Pharmacy To Dose - Potassium Replacement) 0 dose .XX ASDIRECTED PRN PRN Reason: RX TO WATCH K LEVELS Rivaroxaban (Xarelto) 15 mg PO BID [facility] Last Admin: 02/10/18 08:51 Dose: 15 mg Senna/Docusate Sodium (Senna Plus) 1 tab PO BID PRN PRN Reason: Constipation Simvastatin (Zocor) 10 mg PO BEDTIME [facility] Temazepam (Restoril) 7.5 mg PO BEDTIME PRN PRN Reason: Sleep Last Admin: 02/09/18 20:18 Dose: 7.5 mg Discontinued Medications Bupropion HCl (Wellbutrin Sr) 100 mg PO DAILY@1200 [facility] Bupropion HCl (Wellbutrin Sr) 200 mg PO QAM [facility] Last Admin: 02/10/18 08:50 Dose: 200 mg Diatrizoate Meglum/Diatrizoate Sod (Gastrografin 37%) 120 ml PO ONETIME ONE Stop: 02/10/18 09:05 Last Admin: 02/10/18 11:53 Dose: 90 ml Hydromorphone HCl (Dilaudid) 0.25 mg IVPUSH Q2H PRN PRN Reason: Pain (severe 7-10) Sodium Chloride (Normal Saline) 250 mls @ 999 mls/hr IV ASDIRECTED [facility] Stop: 02/10/18 12:00 Iopamidol (Isovue-300 (61%)) 150 ml IVPUSH ONETIME ONE Stop: 02/10/18 09:05 Last Admin: 02/10/18 11:53 Dose: 125 ml Lorazepam (Ativan) 0.5 mg IVPUSH ONETIME ONE Stop: 02/09/18 23:25 Last Admin: 02/09/18 23:38 Dose: 0.5 mg Magnesium Oxide (Magnesium Oxide) 800 mg PO ONETIME ONE Stop: 02/10/18 09:01 Last Admin: 02/10/18 08:49 Dose: 800 mg Non-Formulary Medication (Calcium Carb/Mag Ox/Zinc Sulf [Cvbfsns-Hrcmdbijo-Spqg Tablet]) 1 tab PO BEDTIME [facility] Non-Formulary Medication (Melatonin ) 1 tab PO BEDTIME [facility] Pramipexole Dihydrochloride (Mirapex) 0.25 mg PO ONETIME ONE Stop: 02/10/18 23:24 Pramipexole Dihydrochloride (Mirapex) 0.25 mg PO ONETIME ONE Stop: 02/09/18 23:46 Last Admin: 02/09/18 23:38 Dose: 0.25 mg Rivaroxaban (Xarelto) 20 mg PO ONETIME ONE Stop: 02/09/18 15:10 Last Admin: 02/09/18 15:33 Dose: 20 mg Sertraline HCl (Zoloft) 100 mg PO BEDTIME [facility] Last Admin: 02/09/18 20:12 Dose: 100 mg Sodium Chloride (Saline Flush) 10 ml FLUSH ONETIME PRN PRN Reason: IV FLUSH Stop: 02/10/18 11:00 Temazepam (Restoril) 7.5 mg PO ONETIME ONE Stop: 02/09/18 23:26 Last Admin: 02/09/18 23:38 Dose: 7.5 mg - Exam General: Alert, Oriented, Cooperative, No Acute Distress, Other (Morbidly OBese) HEENT: Pupils Equal, Pupils Reactive, EOMI, Mucous Membr. Moist/[place] Neck: Supple, Trachea Midline, No JVD, No Thyromegaly, Other (short and thick) Lungs: Decreased Breath Sounds Cardiovascular: Regular Rate, Regular Rhythm GI/Abdominal Exam: Normal Bowel Sounds, Soft, Non-Tender, No Organomegaly, No Distention, No Abnormal Bruit, No Mass, Other (Morbily Obese) (Female) Exam: Deferred Back Exam: Normal Inspection, Decreased Range of Motion Extremities: Normal Inspection, Normal Range of Motion, Non-Tender, No Pedal Edema, Normal Capillary Refill Peripheral Pulses: 2+: Dorsalis Pedis (L), Dorsalis Pedis (R) Skin: Warm, Dry, Intact Neurological: No New Focal Deficit Psy/Mental Status: Alert, Normal Affect, Normal Mood - Problem List Review Problem List Initiated/Reviewed/Updated: Yes - My Orders Last 24 Hours: My Active Orders 02/09/18 23:47 Pulse Oximetry Continuous Monitoring [OM.PC] Routine 02/10/18 09:38 Consult to Hotel Controller [Consult to Diabetic Nurse Specialist] [CONS] Routine Consult to Toll Line Repairer [CONS] Routine 02/10/18 11:15 Sodium Chloride 0.9% [Normal Saline] 100 ml IV ASDIRECTED 02/10/18 11:27 MICROALBUMIN,URINE RANDOM [URCHEM] Routine 02/10/18 11:58 Accu Check [Blood Glucose Check, Bedside] [RC] QIDACANDBED 02/10/18 12:00 buPROPion [Wellbutrin SR] 100 mg PO ASDIRECTED 02/10/18 12:30 buPROPion [Wellbutrin SR] 100 mg PO ONETIME ONE 02/10/18 16:00 hydroCHLOROthiazide 12.5 mg PO ACDINNER 02/10/18 17:00 Insulin Lispro [HumaLOG] See Protocol SUBCUT QIDACANDBED metFORMIN [Glucophage] 500 mg PO BIDMEALS 02/10/18 21:00 Naproxen Sodium 220 mg PO BID Simvastatin [Zocor] 10 mg PO BEDTIME - Plan Plan:: I/P: Acute: Bilateral Pulmonary Embolism and Lower Extremity DVT, Stable * 2 week h/o gradually worsening dyspnea w/ minimal exertion, nonproductive cough, no F/C, no pleuritic CP, no hemoptysis, no leg pain. * Risk factors: Morbid Obesity and Immobilization (not very active at home) * No: recent surgery, travel, trauma, initiation of hormone therapy (stopped estrogen therapy over 1 year ago for menopause), active cancer, h/o DVT, Afib. She has never smoked. * Hypoxic 85% on RA--> 92% 2L NC * Worked up at [facility]: * D-dimer which was positive at 5.51 * BNP was also mildly elevated at 300 * CT pulmonary angiogram (read by radiologist at [facility]): * Large clot burden involving both lower lobes of the lungs and a small pulmonary infarct in the left lower lobe. * Multiple filling defects within segmental and subsegmental pulmonary arteries in both the right and left lower lobes bilaterally. * Segmental pulmonary emboli within the right middle lobe. * Evidence of right heart strain with deviation of the intraventricular septum to the left indicating acute pulmonary hypertension. * Reflux of contrast within the hepatic veins, no pleural effusions are pneumothoraces are identified. No pathologic-appearing axillary or mediastinal nodes. Visualized portions of the upper abdomen were reported to be normal. * LE Venous U/S: Partially occluding clot within the right common femoral vein with occluding clot within the proximal right greater saphenous vein. Partially occluding clot within the left popliteal vein * EKG in ED--> Sinus rhythm, old anteroseptal infarct; no evidence of Afib * Doppler U/S in ED: * 1. Partially occluding clot within the right common femoral vein with occluding clot within the proximal right greater saphenous vein. * 2. Partially occluding clot within the left popliteal vein. * Xaralto 20mg PO started in ED--> Continue Xaralto 15mg BID starting @2100 x21 days followed by 20mg daily--> sent and approved by her local pharmacy * She is on low dose Naproxen BID chronically--> will continue it for now but will switch on discharge due to drug to drug interaction with Xarelto * Von Willebrand, Protein C and S, Anti-thrombin activity, Lupus pending * ECHO completed this AM * CT abdomen to r/o malignancy: no report of malignancy but small renal cyst and fatty live Pulmonary HTN * ProBNP is 2267 * Likely 2/2 above plus SHAHAB, Morbid Obesity, and OHS/Probable SHAHAB * Indicated by CT angiogram * Recommend sleep study * ECHO in completed this AM Fatty Liver * 2/2 Morbid Obesity * HLD is low at 24 on lipid panel * Dietary consult * Advised LSM New Onset of Diabetes * A1C 6.7 * Diabetic Education * Metformin 500 mg po BID * Accu-check QIDAC/HS with low dose ISS * Micro-albumin level * Offered SGLT2-Inhibitor and GLP-1 Inhibitors--> provided reading materials * Discussed risk and benefits of Jardiance to included side effects but not limited to UTI, Urinary Frequency, Dehydration, Yeast infection and DKA * Discussed risk and benefits of Victoza to included side effects but not limited to pancreatitis and possible pancreatic or thyroid cancer * 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 thyroid cancer, pancreatic cancer, 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 * Short and thick neck * BMI of 46 * Snore loud and sleeps or day * STOP BANG Questionnaire * Sleep Study after discharge Metabolic Syndrome * Abdominal waist is > 35 in, HLD < 50 (24), BP >= 130/>= 85 mmHg (145/95 mmHg) and fasting glucose >= 100 (113) * Advised LSM * Hopefully with SGLT2/GLP-1 Inhibitors plus Metformin--> will improved down the road Hypothyroidism * TSH 8.341 and FT4 is 1.49 * 2/2 Inadequate Absorption * Pharmacy to increase thyroid dose Hypomagnesemia * Mg 1.7 * 2/2 Inadequate intake * Replete and monitor Morbid Obesity * BMI 56 * She is on Zoloft and Abilify--> both are pro weight gain * Patient agreed to d/c Zoloft and keep Abilify for now * Changes Wellbutrin 300 mg po daily to 100 mg po before meal for both anti- depression and appetite suppression * Dietary consult * Advised LSM Restless Leg Syndrome * Acute On chronic * Resume Home Meds * Started on Mirapex 0.25 mg po daily--> will change to BID * Advised to lose weight Resolved: S/p V-Tach * 16 beats VTACH at around 18:20 this evening * Asymptomatic, no history of prior episodes * Monitor on telemetry S/ Elevated Coagulation Studies * PT 16.1, INR 1.49, PTT 34 * Would be Abnormal with PE/DVT or Thrombosis Chronic: HTN Abnormal liver enzymes/Fatty liver Dz Bipolar affective disorder Depression Insomnia, Resume Melatonin Morbid Obesity BMI 45.5 Plan: She is clinically stable Continue current treatment Other orders as indicated above Routine AM labs Heart Healthy Diet and low dose Statin DVT Prophylaxis: Xarelto PE/DVT Tx Protocol GI Prophylaxis: Pepcid Code Status: Full Code; PCP: Dr. Mcginnis Discharge in 1-2 days Updated sister and later . They were each updated separately about patient's diagnoses, tests and AM lab results, current treatment and discharge care plan.
[2018-02-10] MEDS ORDERED: buPROPion 100 MG Tab.SR PO ONE (12:30)
--- NOTE | 2018-02-10 12:44 | CT ---
CT abdomen and pelvis Technique: Multiple axial sections were obtained from above the dome of the diaphragm inferiorly through the pubic symphysis. Intravenous and oral contrast was utilized. Delayed images were obtained from above the kidneys inferiorly through the pubic symphysis. Findings: Visualized lung bases show mild increased density within the left base. Findings could represent small area of pneumonia if patient has infectious symptoms. Fatty infiltration noted within the liver. Slight low density is seen around the gallbladder and difficult to exclude gallbladder wall edema or pericholecystic fluid. Spleen appears within normal limits. Adrenal glands show no nodule. Pancreas is normal. Kidneys show symmetric contrast enhancement. Small nonobstructing calculus is noted within the right kidney measuring about 1-2 mm. Cyst is noted within the upper right kidney measuring 2.0 cm in size. Delayed images show contrast excretion into both ureters and bladder. Pancreas is normal. Aorta shows no aneurysm. No retroperitoneal adenopathy or mesenteric abnormalities are seen. No pelvic mass or adenopathy is seen. Uterus is enlarged with poorly seen endometrium. Appendix is seen which is normal in size. Mild body wall edema is noted. No free fluid seen within the abdomen. Diverticuli are seen within the sigmoid colon without findings of diverticulitis. Bone window settings were reviewed which shows degenerative change within the spine mostly within the lower thoracic spine and at L4-L5. Impression: 1. Enlarged uterus with poorly seen endometrium. 2. Low density around the gallbladder, difficult to exclude gallbladder wall edema or pericholecystic fluid. Gallbladder ultrasound could be considered. 3. Fatty infiltration within the liver. 4. Small cyst within the upper right kidney. 5. Parenchymal density within the left lung base which could represent pneumonia if patient has correlating symptoms. 6. Other incidental findings. Diagnostic code #3
[2018-02-10] MEDS: Lisinopril 10 MG Tab PO SCH (16:57)
[2018-02-10] MEDS: Hydrochlorothiazide 12.5 MG Cap PO SCH (16:57)
[2018-02-10] MEDS: metFORMIN 500 MG Tab PO SCH (16:57)
[2018-02-10] MEDS: Insulin Lispro 100 Unit/ML 3 ML KwikPen SUBCUT SCH ×2 (16:58→21:44)
[2018-02-10] MEDS ORDERED: MELATONIN PO SCH (21:00)
[2018-02-10] MEDS: Simvastatin 10 MG Tab PO SCH (21:39)
[2018-02-10] MEDS ORDERED: Pramipexole 0.25 MG Tab PO ONE (23:23)
[2018-02-11] MEDS: metFORMIN 500 MG Tab PO SCH ×2 (06:15→17:02)
[2018-02-11] MEDS: buPROPion 100 MG Tab.SR PO SCH ×3 (06:15→17:04)
[2018-02-11] MEDS: Insulin Lispro 100 Unit/ML 3 ML KwikPen SUBCUT SCH ×4 (06:16→21:08)
[2018-02-11] MEDS: Levothyroxine 100 MCG Tab PO SCH (06:16)
--- NOTE | 2018-02-11 09:08 | PCM.PN ---
- General Info Date of Service: 02/11/18 Admission Dx/Problem (Free Text): Admission Diagnosis/Problem Admission Diagnosis/Problem Pulmonary embolism Subjective Update: Follow Up Functional Status: Reports: Pain Controlled, Tolerating Diet, Ambulating, Urinating. Denies: New Symptoms - Review of Systems General: Reports: Fatigue. Denies: Fever, Weakness, Chills HEENT: Reports: No Symptoms Pulmonary: Reports: Shortness of Breath. Denies: Pleuritic Chest Pain, Cough, Sputum, Wheezing Cardiovascular: Reports: Dyspnea on Exertion. Denies: Chest Pain, Lightheadedness Gastrointestinal: Denies: Abdominal Pain, Nausea, Vomiting Genitourinary: Reports: No Symptoms Musculoskeletal: Reports: No Symptoms Skin: Denies: Jaundice, Mottled, Pallor, Diaphoresis, Bruising, Pruritis Neurological: Reports: Gait Disturbance. Denies: Confusion, Difficulty Walking , Weakness Psychiatric: Denies: Depression, Anxiety, Agitation, Hallucinations Systems Review Comment:: No significant overnight or acute issues. She slept better this last night. Her restless leg better is somewhat better today. Her glucose remains controlled. She has not been evaluated by PT/OT. She has no complaints this AM. - Patient Data Vitals - Most Recent: Last Vital Signs Temp 36.6 C 02/11/18 04:39 Pulse 79 02/11/18 04:39 Resp 20 02/11/18 04:39 BP 119/71 02/11/18 04:39 Pulse Ox 96 02/11/18 04:39 Weight - Most Recent: 122.243 kg I&O - Last 24 Hours: Intake & Output 02/10/18 02/11/18 02/11/18 22:59 06:59 14:59 Intake Total 1100 1600 Output Total 650 Balance 1100 950 Lab Results Last 24 Hours: Laboratory Results - last 24 hr 02/10/18 02/10/18 02/10/18 Range/Units 06:05 16:54 19:45 WBC (3.98-10.04) K/mm3 RBC (3.98-5.22) M/mm3 Hgb (11.2-15.7) gm/L Hct (34.1-44.9) % MCV (79.4-94.8) fl MCH (25.6-32.2) pg MCHC (32.2-35.5) g/dl RDW Std Deviation (36.4-46.3) fL Plt Count (182-369) K/mm3 MPV (9.4-12.3) fl Neut % (Auto) (34.0-71.1) % Lymph % (Auto) (19.3-51.7) % [place] % (Auto) (4.7-12.5) % Eos % (Auto) (0.7-5.8) Baso % (Auto) (0.1-1.2) % Neut # (Auto) (1.56-6.13) K/mm3 Lymph # (Auto) (1.18-3.74) K/mm3 [place] # (Auto) (0.24-0.36) K/mm3 Eos # (Auto) (0.04-0.36) K/mm3 Baso # (Auto) (0.01-0.08) K/mm3 Sodium (136-145) mEq/L Potassium (3.5-5.1) mEq/L Chloride (98-107) mEq/L Carbon Dioxide (21-32) mEq/L Anion Gap (5-15) BUN (7-18) mg/dL Creatinine (0.55-1.02) mg/dL Est Cr Clr Drug Dosing mL/min Estimated GFR (MDRD) (>60) mL/min BUN/Creatinine Ratio (14-18) Glucose (80-115) mg/dL POC Glucose 137 H (80-115) mg/dL Calcium (8.5-10.1) mg/dL Magnesium (1.8-2.4) mg/dl C-Reactive Protein (<1.0) mg/dL Free T4 1.49 H (0.76-1.46) ng/dL Urine Color (Yellow) Urine Appearance (Clear) Urine pH (5.0-8.0) Ur Specific [place] (1.005-1.030) Urine Protein (Negative) Urine Glucose (UA) (Negative) Urine Ketones (Negative) Urine Occult Blood (Negative) Urine Nitrite (Negative) Urine Bilirubin (Negative) Urine Urobilinogen (0.2-1.0) Ur Leukocyte Esterase (Negative) Urine RBC (0-5) /hpf Urine WBC (0-5) /hpf Ur Epithelial Cells (0-5) /hpf Urine Bacteria (FEW) /hpf Urine Mucus (FEW) /hpf Ur Random Microalbumin 39.8 H (1.3-20.0) mg/L 02/10/18 02/10/18 02/11/18 Range/Units 19:45 21:44 05:57 WBC (3.98-10.04) K/mm3 RBC (3.98-5.22) M/mm3 Hgb (11.2-15.7) gm/L Hct (34.1-44.9) % MCV (79.4-94.8) fl MCH (25.6-32.2) pg MCHC (32.2-35.5) g/dl RDW Std Deviation (36.4-46.3) fL Plt Count (182-369) K/mm3 MPV (9.4-12.3) fl Neut % (Auto) (34.0-71.1) % Lymph % (Auto) (19.3-51.7) % [place] % (Auto) (4.7-12.5) % Eos % (Auto) (0.7-5.8) Baso % (Auto) (0.1-1.2) % Neut # (Auto) (1.56-6.13) K/mm3 Lymph # (Auto) (1.18-3.74) K/mm3 [place] # (Auto) (0.24-0.36) K/mm3 Eos # (Auto) (0.04-0.36) K/mm3 Baso # (Auto) (0.01-0.08) K/mm3 Sodium (136-145) mEq/L Potassium (3.5-5.1) mEq/L Chloride (98-107) mEq/L Carbon Dioxide (21-32) mEq/L Anion Gap (5-15) BUN (7-18) mg/dL Creatinine (0.55-1.02) mg/dL Est Cr Clr Drug Dosing mL/min Estimated GFR (MDRD) (>60) mL/min BUN/Creatinine Ratio (14-18) Glucose (80-115) mg/dL POC Glucose 114 100 (80-115) mg/dL Calcium (8.5-10.1) mg/dL Magnesium (1.8-2.4) mg/dl C-Reactive Protein (<1.0) mg/dL Free T4 (0.76-1.46) ng/dL Urine Color Yellow (Yellow) Urine Appearance Slt cloudy H (Clear) Urine pH 6.0 (5.0-8.0) Ur Specific [place] 1.020 (1.005-1.030) Urine Protein Negative (Negative) Urine Glucose (UA) Negative (Negative) Urine Ketones Negative (Negative) Urine Occult Blood 1+ H (Negative) Urine Nitrite Negative (Negative) Urine Bilirubin Negative (Negative) Urine Urobilinogen 0.2 (0.2-1.0) Ur Leukocyte Esterase 1+ H (Negative) Urine RBC 0-5 (0-5) /hpf Urine WBC 10-20 H (0-5) /hpf Ur Epithelial Cells 0-5 (0-5) /hpf Urine Bacteria Moderate H (FEW) /hpf Urine Mucus Few (FEW) /hpf Ur Random Microalbumin (1.3-20.0) mg/L 02/11/18 02/11/18 Range/Units 06:25 06:25 WBC 12.64 H (3.98-10.04) K/mm3 RBC 5.01 (3.98-5.22) M/mm3 Hgb 13.9 (11.2-15.7) gm/L Hct 43.5 (34.1-44.9) % MCV 86.8 (79.4-94.8) fl MCH 27.7 (25.6-32.2) pg MCHC 32.0 L (32.2-35.5) g/dl RDW Std Deviation 49.3 H (36.4-46.3) fL Plt Count 387 H (182-369) K/mm3 MPV 10.7 (9.4-12.3) fl Neut % (Auto) 63.1 (34.0-71.1) % Lymph % (Auto) 20.1 (19.3-51.7) % [place] % (Auto) 7.8 (4.7-12.5) % Eos % (Auto) 7.6 H (0.7-5.8) Baso % (Auto) 1.1 (0.1-1.2) % Neut # (Auto) 7.97 H (1.56-6.13) K/mm3 Lymph # (Auto) 2.54 (1.18-3.74) K/mm3 [place] # (Auto) 0.99 H (0.24-0.36) K/mm3 Eos # (Auto) 0.96 H (0.04-0.36) K/mm3 Baso # (Auto) 0.14 H (0.01-0.08) K/mm3 Sodium 133 L (136-145) mEq/L Potassium 3.7 (3.5-5.1) mEq/L Chloride 98 (98-107) mEq/L Carbon Dioxide 27 (21-32) mEq/L Anion Gap 11.7 (5-15) BUN 32 H (7-18) mg/dL Creatinine 1.2 H (0.55-1.02) mg/dL Est Cr Clr Drug Dosing 42.51 mL/min Estimated GFR (MDRD) 46 (>60) mL/min BUN/Creatinine Ratio 26.7 H (14-18) Glucose 112 (80-115) mg/dL POC Glucose (80-115) mg/dL Calcium 8.9 (8.5-10.1) mg/dL Magnesium 1.9 (1.8-2.4) mg/dl C-Reactive Protein 3.9 H* (<1.0) mg/dL Free T4 (0.76-1.46) ng/dL Urine Color (Yellow) Urine Appearance (Clear) Urine pH (5.0-8.0) Ur Specific [place] (1.005-1.030) Urine Protein (Negative) Urine Glucose (UA) (Negative) Urine Ketones (Negative) Urine Occult Blood (Negative) Urine Nitrite (Negative) Urine Bilirubin (Negative) Urine Urobilinogen (0.2-1.0) Ur Leukocyte Esterase (Negative) Urine RBC (0-5) /hpf Urine WBC (0-5) /hpf Ur Epithelial Cells (0-5) /hpf Urine Bacteria (FEW) /hpf Urine Mucus (FEW) /hpf Ur Random Microalbumin (1.3-20.0) mg/L Med Orders - Current: Current Medications Acetaminophen (Tylenol) 650 mg PO Q4H PRN PRN Reason: Pain (Mild 1-3)/fever Aripiprazole (Abilify) 10 mg PO DAILY MALIK Last Admin: 02/10/18 08:49 Dose: 10 mg Bisacodyl (Dulcolax) 5 mg PO DAILY PRN PRN Reason: Constipation Bupropion HCl (Wellbutrin Sr) 100 mg PO TIDAC [facility] Last Admin: 02/11/18 06:15 Dose: 100 mg Cholecalciferol (Vitamin D3) 2,000 units PO DAILY [facility] Last Admin: 02/10/18 08:49 Dose: 2,000 units Cyanocobalamin (Vitamin B12) 500 mcg PO DAILY [facility] Last Admin: 02/10/18 08:50 Dose: 500 mcg Docusate Sodium (Colace) 100 mg PO BID PRN PRN Reason: Constipation Famotidine (Pepcid) 20 mg PO BID [facility] Last Admin: 02/10/18 21:38 Dose: 20 mg Hydrochlorothiazide (Hydrochlorothiazide) 12.5 mg PO ACDINNER [facility] Last Admin: 02/10/18 16:57 Dose: 12.5 mg Hydromorphone HCl (Dilaudid) 0.25 mg IVPUSH Q2H PRN PRN Reason: Pain (severe 7-10) Insulin Human Lispro (Humalog) 0 unit SUBCUT QIDACANDBED [facility]; Protocol Last Admin: 02/11/18 06:16 Dose: Not Given Levothyroxine Sodium (Synthroid) 100 mcg PO ACBREAKFAST [facility] Last Admin: 02/11/18 06:16 Dose: 100 mcg Lisinopril (Prinivil) 10 mg PO ACDINNER [facility] Last Admin: 02/10/18 16:57 Dose: 10 mg Magnesium Hydroxide (Milk Of Magnesia) 30 ml PO Q12H PRN PRN Reason: Constipation Magnesium Sulfate (Pharmacy To Dose - Magnesium Replacement) 0 dose .XX ASDIRECTED PRN PRN Reason: RX TO WATCH MAG LEVELS Metformin HCl (Glucophage) 500 mg PO BIDMEALS [facility] Last Admin: 02/11/18 06:15 Dose: 500 mg Multivitamins (Thera) 1 each PO DAILY [facility] Last Admin: 02/10/18 08:49 Dose: 1 each Naproxen (Naprosyn) 187.5 mg PO BID [facility] Last Admin: 02/10/18 21:40 Dose: 187.5 mg Ondansetron HCl (Zofran Odt) 4 mg PO Q4H PRN PRN Reason: nausea, able to take PO Ondansetron HCl (Zofran) 4 mg IV Q4H PRN PRN Reason: Nausea/Vomiting Oxycodone/Acetaminophen (Percocet 325-5 Mg) 1 tab PO Q4H PRN PRN Reason: Pain (moderate 4-6) Polyethylene Glycol (Miralax) 17 gm PO DAILY PRN PRN Reason: Constipation Potassium Chloride (Pharmacy To Dose - Potassium Replacement) 0 dose .XX ASDIRECTED PRN PRN Reason: RX TO WATCH K LEVELS Pramipexole Dihydrochloride (Mirapex) 0.25 mg PO BID [facility] Rivaroxaban (Xarelto) 15 mg PO BID [facility] Last Admin: 02/10/18 21:39 Dose: 15 mg Senna/Docusate Sodium (Senna Plus) 1 tab PO BID PRN PRN Reason: Constipation Simvastatin (Zocor) 10 mg PO BEDTIME [facility] Last Admin: 02/10/18 21:39 Dose: 10 mg Temazepam (Restoril) 7.5 mg PO BEDTIME PRN PRN Reason: Sleep Last Admin: 02/09/18 20:18 Dose: 7.5 mg Discontinued Medications Bupropion HCl (Wellbutrin Sr) 100 mg PO DAILY@1200 [facility] Bupropion HCl (Wellbutrin Sr) 200 mg PO QAM [facility] Last Admin: 02/10/18 08:50 Dose: 200 mg Bupropion HCl (Wellbutrin Sr) 100 mg PO ONETIME ONE Stop: 02/10/18 12:31 Last Admin: 02/10/18 13:30 Dose: 100 mg Diatrizoate Meglum/Diatrizoate Sod (Gastrografin 37%) 120 ml PO ONETIME ONE Stop: 02/10/18 09:05 Last Admin: 02/10/18 11:53 Dose: 90 ml Hydromorphone HCl (Dilaudid) 0.25 mg IVPUSH Q2H PRN PRN Reason: Pain (severe 7-10) Sodium Chloride (Normal Saline) 250 mls @ 999 mls/hr IV ASDIRECTED [facility] Stop: 02/10/18 12:00 Sodium Chloride (Normal Saline) 100 mls @ 60 mls/hr IV ASDIRECTED [facility] Stop: 02/10/18 13:00 Last Admin: 02/10/18 11:54 Dose: 60 mls/hr Iopamidol (Isovue-300 (61%)) 150 ml IVPUSH ONETIME ONE Stop: 02/10/18 09:05 Last Admin: 02/10/18 11:53 Dose: 125 ml Levothyroxine Sodium (Synthroid) 88 mcg PO ACBREAKFAST [facility] Last Admin: 02/10/18 06:13 Dose: 88 mcg Lorazepam (Ativan) 0.5 mg IVPUSH ONETIME ONE Stop: 02/09/18 23:25 Last Admin: 02/09/18 23:38 Dose: 0.5 mg Magnesium Oxide (Magnesium Oxide) 800 mg PO ONETIME ONE Stop: 02/10/18 09:01 Last Admin: 02/10/18 08:49 Dose: 800 mg Non-Formulary Medication (Calcium Carb/Mag Ox/Zinc Sulf [Ksjiguy-Nomljupeb-Hqvf Tablet]) 1 tab PO BEDTIME [facility]IK Last Admin: 02/10/18 13:22 Dose: Not Given Non-Formulary Medication (Melatonin ) 1 tab PO BEDTIME [facility] Pramipexole Dihydrochloride (Mirapex) 0.25 mg PO ONETIME ONE Stop: 02/10/18 23:24 Pramipexole Dihydrochloride (Mirapex) 0.25 mg PO ONETIME ONE Stop: 02/09/18 23:46 Last Admin: 02/09/18 23:38 Dose: 0.25 mg Rivaroxaban (Xarelto) 20 mg PO ONETIME ONE Stop: 02/09/18 15:10 Last Admin: 02/09/18 15:33 Dose: 20 mg Sertraline HCl (Zoloft) 100 mg PO BEDTIME [facility] Last Admin: 02/09/18 20:12 Dose: 100 mg Sodium Chloride (Saline Flush) 10 ml FLUSH ONETIME PRN PRN Reason: IV FLUSH Stop: 02/10/18 11:00 Temazepam (Restoril) 7.5 mg PO ONETIME ONE Stop: 02/09/18 23:26 Last Admin: 02/09/18 23:38 Dose: 7.5 mg - Exam General: Alert, Oriented, Cooperative, No Acute Distress, Other (Morbidly Obese) HEENT: Pupils Equal, Pupils Reactive, EOMI, Mucous Membr. Moist/[place] Neck: Supple, Trachea Midline, No JVD, No Thyromegaly, Other (short and thick) Lungs: Normal Respiratory Effort, Decreased Breath Sounds Cardiovascular: Regular Rate, Regular Rhythm GI/Abdominal Exam: Normal Bowel Sounds, Soft, Non-Tender, No Organomegaly, No Distention, No Abnormal Bruit, Other (Obese) (Female) Exam: Deferred Back Exam: Normal Inspection, Decreased Range of Motion Extremities: Normal Inspection, Normal Range of Motion, Non-Tender, No Pedal Edema, Normal Capillary Refill Peripheral Pulses: 2+: Dorsalis Pedis (L), Dorsalis Pedis (R) Skin: Warm, Dry, Intact Neurological: No New Focal Deficit Psy/Mental Status: Alert, Normal Affect, Normal Mood - Problem List Review Problem List Initiated/Reviewed/Updated: Yes - My Orders Last 24 Hours: My Active Orders 02/10/18 09:38 Consult to Installation Technician [Consult to Diabetic Nurse Specialist] [CONS] Routine Consult to Cathode Ray Tube Assembler [CONS] Routine 02/10/18 11:58 Accu Check [Blood Glucose Check, Bedside] [RC] QIDACANDBED 02/10/18 16:00 hydroCHLOROthiazide 12.5 mg PO ACDINNER 02/10/18 17:00 Insulin Lispro [HumaLOG] See Protocol SUBCUT QIDACANDBED metFORMIN [Glucophage] 500 mg PO BIDMEALS 02/10/18 21:00 Naproxen [Naprosyn] 187.5 mg PO BID Simvastatin [Zocor] 10 mg PO BEDTIME 02/11/18 06:00 Levothyroxine [Synthroid] 100 mcg PO ACBREAKFAST 02/11/18 07:00 buPROPion [Wellbutrin SR] 100 mg PO TIDAC 02/11/18 09:00 Pramipexole [Mirapex] 0.25 mg PO BID - Plan Plan:: I/P: Acute: Bilateral Pulmonary Embolism and Lower Extremity DVT, Stable * 2 week h/o gradually worsening dyspnea w/ minimal exertion, nonproductive cough, no F/C, no pleuritic CP, no hemoptysis, no leg pain. * Risk factors: Morbid Obesity and Immobilization (not very active at home) * No: recent surgery, travel, trauma, initiation of hormone therapy (stopped estrogen therapy over 1 year ago for menopause), active cancer, h/o DVT, Afib. She has never smoked. * Hypoxic 85% on RA--> 92% 2L NC * Worked up at [facility]: * D-dimer which was positive at 5.51 * BNP was also mildly elevated at 300 * CT pulmonary angiogram (read by radiologist at [facility]): * Large clot burden involving both lower lobes of the lungs and a small pulmonary infarct in the left lower lobe. * Multiple filling defects within segmental and subsegmental pulmonary arteries in both the right and left lower lobes bilaterally. * Segmental pulmonary emboli within the right middle lobe. * Evidence of right heart strain with deviation of the intraventricular septum to the left indicating acute pulmonary hypertension. * Reflux of contrast within the hepatic veins, no pleural effusions are pneumothoraces are identified. No pathologic-appearing axillary or mediastinal nodes. Visualized portions of the upper abdomen were reported to be normal. * LE Venous U/S: Partially occluding clot within the right common femoral vein with occluding clot within the proximal right greater saphenous vein. Partially occluding clot within the left popliteal vein * EKG in ED--> Sinus rhythm, old anteroseptal infarct; no evidence of Afib * Doppler U/S in ED: * 1. Partially occluding clot within the right common femoral vein with occluding clot within the proximal right greater saphenous vein. * 2. Partially occluding clot within the left popliteal vein. 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 Paradoxical septal movement due to RV overload. Moderately reduced RV systolic function Fatty Liver * 2/2 Morbid Obesity * HLD is low at 24 on lipid panel * Dietary consult * Advised LSM New Onset of Diabetes * A1C 6.7; BS controlled * Diabetic Education * Metformin 500 mg po BID; will add Jadiance and Victoza in AM on discharge * Accu-check QIDAC/HS with low dose ISS * Micro-albumin level-elevated; she is already on ACEI; Hold ASA for now due to increased risk of bleeding while on Xarelto * Offered SGLT2-Inhibitor and GLP-1 Inhibitors--> provided reading materials * Discussed risk and benefits of Jardiance to included side effects but not limited to UTI, Urinary Frequency, Dehydration, Yeast infection and DKA * Discussed risk and benefits of Victoza to included side effects but not limited to pancreatitis and possible pancreatic or thyroid cancer * 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 thyroid cancer, pancreatic cancer, 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 * Short and thick neck * BMI of 46 * Snore loud and sleeps or day * STOP BANG Questionnaire * Sleep Study after discharge Metabolic Syndrome * Abdominal waist is > 35 in, HLD < 50 (24), BP >= 130/>= 85 mmHg (145/95 mmHg) and fasting glucose >= 100 (113) * Advised LSM * Hopefully with SGLT2/GLP-1 Inhibitors plus Metformin--> will improved down the road Hypothyroidism * TSH 8.341 and FT4 is 1.49 * 2/2 Inadequate Absorption * Dose increased thyroid dose to 100 mcg po daily Morbid Obesity * BMI 56 * She is on Zoloft and Abilify--> both are pro weight gain * Patient agreed to d/c Zoloft and keep Abilify for now * Continue Wellbutrin 100 mg po before meal for both anti-depression and appetite suppression * Dietary consult * Advised LSM Restless Leg Syndrome, Improved * Acute On chronic * Resume Home Meds * Continue Mirapex 0.25 mg po BID * Advised to lose weight Resolved: S/p V-Tach * 16 beats VTACH at around 18:20 this evening * Asymptomatic, no history of prior episodes * Monitor on telemetry S/ Elevated Coagulation Studies * PT 16.1, INR 1.49, PTT 34 * Would be Abnormal with PE/DVT or Thrombosis S/p Hypomagnesemia * Mg 1.7--> 1.9 * 2/2 Inadequate intake * Replete and monitor Chronic: HTN Abnormal liver enzymes/Fatty liver Dz Bipolar affective disorder Depression Insomnia, Resume Melatonin Morbid Obesity BMI 45.5 Plan: She remains clinically stable Continue current treatment Other orders as indicated above Routine AM labs PT/OT eval RT to assess for home O2 use (Walking and Nocturnal Hypoxia) Heart Healthy Diet and low dose Statin DVT Prophylaxis: Xarelto PE/DVT Tx Protocol GI Prophylaxis: Pepcid Code Status: Full Code; PCP: Dr. Mcginnis Sleep Study after discharge Possible d/c in AM
[2018-02-11] MEDS: Multivitamins,Therapeutic Tab PO SCH (09:43)
[2018-02-11] MEDS: Rivaroxaban 10 MG Tab PO SCH ×2 (09:43→21:06)
[2018-02-11] MEDS: ARIPiprazole 10 MG Tab PO SCH (09:48)
[2018-02-11] MEDS: Famotidine 20 MG Tab PO SCH ×2 (09:51→21:07)
[2018-02-11] MEDS: Cholecalciferol (Vitamin D3) 1,000 Unit Tab PO SCH (09:52)
[2018-02-11] MEDS: Cyanocobalamin (Vitamin B12) 1,000 MCG Tab PO SCH (09:52)
[2018-02-11] MEDS: Pramipexole 0.25 MG Tab PO SCH ×2 (09:53→21:07)
[2018-02-11] MEDS: Lisinopril 10 MG Tab PO SCH (17:03)
[2018-02-11] MEDS: Hydrochlorothiazide 12.5 MG Cap PO SCH (17:03)
[2018-02-11] MEDS: Simvastatin 10 MG Tab PO SCH (21:06)
[2018-02-12] MEDS: Levothyroxine 100 MCG Tab PO SCH (06:41)
[2018-02-12] MEDS: metFORMIN 500 MG Tab PO SCH (06:41)
[2018-02-12] MEDS: buPROPion 100 MG Tab.SR PO SCH ×2 (06:41→10:00)
[2018-02-12] MEDS: Insulin Lispro 100 Unit/ML 3 ML KwikPen SUBCUT SCH ×2 (08:07→12:05)
--- NOTE | 2018-02-12 08:38 | PCM.DCSUM1 ---
Discharge Summary - Hospital Course Brief History: This is a 62 yo female with past medical hx/o HTN, abnormal liver enzymes/Fatty liver Dz, Bipolar affective disorder, Depression, Insomnia, Hypothyroidism, Morbid Obesity who was sent over from [facility] for bilateral PE and hypoxia 85% RA. She c/o 2 week gradually worsening dyspnea w/ minimal exertion and nonproductive cough. She denies F/C, pleuritic CP, hemoptysis, leg pain. She denies any recent travel or h/o DVT. Her workup at [facility] showed positive D-dimer of 5.51, slightly elevated BNP at 300. CT pulmonary angiogram read by [facility] shows bilateral PE with small infarct in left lower lobe and acute pulmonary HTN. Her workup in the ED shows elevated coagulation studies of PT 16.1, INR 1.49, aPTT 34. EKG in ED shows sinus rhythm with old anteroseptal infarct; no evidence of Afib or acute injury. Doppler U/S in ED shows partially occluding clot to right common femoral vein and left popliteal vein. Von Willebrand, Protein C and S, Antithrombin activity, Lupus pending. She is subsequently admitted to the medical floor. She is a Full Code. Her PCP is Dr. Mcginnis. Diagnosis: Stroke: No Modified [place] Scale: No Symptoms at All Modified [place] Scale Score: 0 - Discharge Data Discharge Date: 02/12/18 Discharge Disposition: Home, Self-Care 01 Condition: Good - Discharge Diagnosis/Problem(s) (1) Bilateral pulmonary embolism SNOMED Code(s): 75036402 ICD Code: I26.99 - OTHER PULMONARY EMBOLISM WITHOUT ACUTE COR PULMONALE Status: Acute Priority: High Current Visit: Yes (2) DVT, lower extremity, distal, acute SNOMED Code(s): 346853514108 ICD Code: I82.4Z9 - ACUTE EMBLSM AND THOMBOS UNSP DEEP VN UNSP DISTAL LOW EXTRM Status: Acute Priority: High Current Visit: Yes Qualifiers: Laterality: left Qualified Code(s): I82.4Z2 - Acute embolism and thrombosis of unspecified deep veins of left distal lower extremity (3) DVT, lower extremity, proximal SNOMED Code(s): 155913413 ICD Code: I82.4Y9 - ACUTE EMBLSM AND THOMBOS UNSP DEEP VN UNSP PROX LOW EXTRM Status: Acute Priority: High Current Visit: Yes Qualifiers: Chronicity: acute Laterality: right Qualified Code(s): I82.4Y1 - Acute embolism and thrombosis of unspecified deep veins of right proximal lower extremity (4) Pulmonary hypertension SNOMED Code(s): 95769045 ICD Code: I27.20 - PULMONARY HYPERTENSION, UNSPECIFIED Status: Acute Priority: High Current Visit: Yes (5) SHAHAB (obstructive sleep apnea) SNOMED Code(s): 56468972 ICD Code: G47.33 - OBSTRUCTIVE SLEEP APNEA (ADULT) (PEDIATRIC) Status: Acute Current Visit: Yes (6) Obesity hypoventilation syndrome SNOMED Code(s): 253278118 ICD Code: E66.2 - MORBID (SEVERE) OBESITY WITH ALVEOLAR HYPOVENTILATION Status: Acute Current Visit: Yes (7) Morbid obesity due to excess calories SNOMED Code(s): 576206351 ICD Code: E66.01 - MORBID (SEVERE) OBESITY DUE TO EXCESS CALORIES Status: Acute Current Visit: Yes (8) New onset type 2 diabetes mellitus SNOMED Code(s): 57086141 ICD Code: E11.9 - TYPE 2 DIABETES MELLITUS WITHOUT COMPLICATIONS Status: Acute Current Visit: Yes - Patient Summary/Data Operative Procedure(s) Performed: None Complications: None Consults: Consultations 02/09/18 18:38 Consult to Spiritual Care [CONS] Routine OT Evaluation and Treatment [CONS] Routine PT Evaluation and Treatment [CONS] Routine Respiratory Care Assess and Treatment [CONS] Routine 02/09/18 18:53 Consult to Dietary [Consult to Filler Sifter Helper] [CONS] Routine 02/10/18 09:38 Consult to Handle Maker [Consult to Diabetic Nurse Specialist] [CONS] Routine Consult to Filler Sifter Helper [CONS] Routine Labs Pending at D/C: None Recommended Follow-up Testing/Procedures: None Planned Operative Procedure(s) after DC: None - Patient Instructions Diet: Heart Healthy Diet, Usual Diet as Tolerated, Diabetic Diet, Weight Loss Diet Activity: As Tolerated Showering/Bathing: May Shower Notify Provider of: Fever, Increased Pain, Swelling and Redness, Nausea and/or Vomiting Other/Special Instructions: - Please take all new medications as directed. - Resume all home medications except for the changes noted on discharge medication list. - Continue routine home activities as tolerated. - Check vitals and follow parameters before taking your BP medication(s). Show log on follow up appointment with PCP. - Check glucose before each meal and at bedtime. Show log on follow up appointment with PCP. - Recommend eating proper diet, exercise as tolerated, and lose weight. - Recommend sleep study after discharge. - Call or follow up with your PCP for any questions or concerns after discharge. - Follow up with your PCP in 1-2 week (s). - Come back or seek immediate care should your symptoms persist or get worse - Discharge Plan *PRESCRIPTION DRUG MONITORING PROGRAM REVIEWED*: Not Applicable *COPY OF PRESCRIPTION DRUG MONITORING REPORT IN PATIENT DAVIDSON: Not Applicable Prescriptions/Med Rec: buPROPion [Wellbutrin SR] 100 mg PO DAILY #90 tab.sr Empagliflozin [Jardiance] 25 mg PO ACBREAKFAST #30 tablet Liraglutide [Victoza 3-Jorge] 18 mg SUBCUT ASDIRECTED #1 pen Rivaroxaban [Xarelto] 15 mg PO ASDIRECTED #38 tablet Rivaroxaban [Xarelto] 20 mg PO DAILY #30 tablet Home Medications: Home Meds ARIPiprazole [Abilify] 10 mg PO DAILY 02/09/18 [History] Calcium Carb/Mag Ox/Zinc Sulf [Jdnmwbb-Unoifegzd-Jegl Tablet] 1 tab PO BEDTIME 02/09/18 [History] Cholecalciferol (Vitamin D3) [D3-2000] 2,000 units PO DAILY 02/09/18 [History] Cyanocobalamin (Vitamin B12) [Vitamin B12] 500 mcg PO DAILY 02/09/18 [History] Levothyroxine [Synthroid] 88 mcg PO DAILY 02/09/18 [History] Melatonin 1 tab PO BEDTIME 02/09/18 [History] Multivitamin [Multivitamins] 1 tab PO DAILY 02/09/18 [History] Empagliflozin [Jardiance] 25 mg PO ACBREAKFAST #30 tablet 02/10/18 [Rx] Liraglutide [Victoza 3-Jorge] 18 mg SUBCUT ASDIRECTED #1 pen 02/10/18 [Rx] Rivaroxaban [Xarelto] 15 mg PO ASDIRECTED #38 tablet 02/10/18 [Rx] Rivaroxaban [Xarelto] 20 mg PO DAILY #30 tablet 02/10/18 [Rx] Lisinopril/Hydrochlorothiazide [Lisinopril-HCTZ 10-12.5 MG] 1 tab PO ACDINNER # 0 02/12/18 [Rx] buPROPion [Wellbutrin SR] 100 mg PO DAILY #90 tab.sr 02/12/18 [Rx] Patient Handouts: Bleeding Precautions When on Anticoagulant Therapy, Adult, Type 2 Diabetes Mellitus, Diagnosis, Adult, Rivaroxaban oral tablets, Obesity Hypoventilation Syndrome, Pulmonary Hypertension, Sleep Apnea, Xeft-es-Owig, Pulmonary Embolism, Venous Thromboembolism Prevention, Obesity, Adult, Easy-to- Read Referrals: Geoffrey Mcginnis MD [Primary Care Provider] - (Request a referral to a door core assembler if your doctor feels this is appropriate.) - Discharge Summary/Plan Comment DC Time >30 min.: Yes (45 mins) Discharge Summary/Plan Comment: Discharge to Home - General Info Date of Service: 02/12/18 Admission Dx/Problem (Free Text: Admission Diagnosis/Problem Admission Diagnosis/Problem Pulmonary embolism Subjective Update: Follow Up Functional Status: Reports: Pain Controlled, Tolerating Diet, Ambulating, Urinating, New Symptoms - Review of Systems General: Denies: Fever, Weakness, Fatigue, Malaise, Chills HEENT: Reports: No Symptoms Pulmonary: Denies: Shortness of Breath Cardiovascular: Denies: Chest Pain, Dyspnea on Exertion, Lightheadedness Gastrointestinal: Denies: Abdominal Pain, Constipation, Decreased Appetite, Diarrhea, Difficulty Swallowing, Nausea, Vomiting Genitourinary: Reports: No Symptoms Musculoskeletal: Reports: No Symptoms Skin: Denies: Cyanosis, Mottled, Pallor, Diaphoresis, Bruising Neurological: Denies: Confusion, Difficulty Walking, Weakness, Gait Disturbance Psychiatric: Denies: Depression, Anxiety, Agitation, Hallucinations Systems Review Comment: No overnight or acute issues. She is doing relatively fine. This morning she reports worsening of her intermittent monthly period. She has no other complaints. her glucose is fairly controlled. - Patient Data Vitals - Most Recent: Last Vital Signs Temp 36.1 C 02/12/18 04:54 Pulse 87 02/12/18 04:54 Resp 18 02/12/18 04:54 BP 115/71 02/12/18 04:54 Pulse Ox 91 L 02/12/18 06:42 Weight - Most Recent: 122.924 kg I&O - Last 24 hours: Intake & Output 02/11/18 02/12/18 02/12/18 22:59 06:59 14:59 Intake Total 1560 1600 Balance 1560 1600 Lab Results - Last 24 hrs: Laboratory Results - last 24 hr 02/11/18 02/11/18 02/11/18 Range/Units 11:07 16:32 20:56 WBC (3.98-10.04) K/mm3 RBC (3.98-5.22) M/mm3 Hgb (11.2-15.7) gm/L Hct (34.1-44.9) % MCV (79.4-94.8) fl MCH (25.6-32.2) pg MCHC (32.2-35.5) g/dl RDW Std Deviation (36.4-46.3) fL Plt Count (182-369) K/mm3 MPV (9.4-12.3) fl Neut % (Auto) (34.0-71.1) % Lymph % (Auto) (19.3-51.7) % [place] % (Auto) (4.7-12.5) % Eos % (Auto) (0.7-5.8) Baso % (Auto) (0.1-1.2) % Neut # (Auto) (1.56-6.13) K/mm3 Lymph # (Auto) (1.18-3.74) K/mm3 [place] # (Auto) (0.24-0.36) K/mm3 Eos # (Auto) (0.04-0.36) K/mm3 Baso # (Auto) (0.01-0.08) K/mm3 Manual Slide Review Sodium (136-145) mEq/L Potassium (3.5-5.1) mEq/L Chloride (98-107) mEq/L Carbon Dioxide (21-32) mEq/L Anion Gap (5-15) BUN (7-18) mg/dL Creatinine (0.55-1.02) mg/dL Est Cr Clr Drug Dosing mL/min Estimated GFR (MDRD) (>60) mL/min BUN/Creatinine Ratio (14-18) Glucose (80-115) mg/dL POC Glucose 148 H 118 H 117 H (80-115) mg/dL Calcium (8.5-10.1) mg/dL Magnesium (1.8-2.4) mg/dl C-Reactive Protein (<1.0) mg/dL 02/12/18 02/12/18 02/12/18 Range/Units 04:50 04:50 06:48 WBC 15.50 H (3.98-10.04) K/mm3 RBC 4.85 (3.98-5.22) M/mm3 Hgb 13.6 (11.2-15.7) gm/L Hct 42.1 (34.1-44.9) % MCV 86.8 (79.4-94.8) fl MCH 28.0 (25.6-32.2) pg MCHC 32.3 (32.2-35.5) g/dl RDW Std Deviation 49.0 H (36.4-46.3) fL Plt Count 370 H (182-369) K/mm3 MPV 11.0 (9.4-12.3) fl Neut % (Auto) 82.1 H (34.0-71.1) % Lymph % (Auto) 8.3 L (19.3-51.7) % [place] % (Auto) 7.1 (4.7-12.5) % Eos % (Auto) 1.9 (0.7-5.8) Baso % (Auto) 0.3 (0.1-1.2) % Neut # (Auto) 12.72 H (1.56-6.13) K/mm3 Lymph # (Auto) 1.29 (1.18-3.74) K/mm3 [place] # (Auto) 1.10 H (0.24-0.36) K/mm3 Eos # (Auto) 0.29 (0.04-0.36) K/mm3 Baso # (Auto) 0.05 (0.01-0.08) K/mm3 Manual Slide Review Normal smear Sodium 137 (136-145) mEq/L Potassium 4.3 (3.5-5.1) mEq/L Chloride 102 (98-107) mEq/L Carbon Dioxide 24 (21-32) mEq/L Anion Gap 15.3 H (5-15) BUN 34 H (7-18) mg/dL Creatinine 1.2 H (0.55-1.02) mg/dL Est Cr Clr Drug Dosing 42.51 mL/min Estimated GFR (MDRD) 46 (>60) mL/min BUN/Creatinine Ratio 28.3 H (14-18) Glucose 147 H (80-115) mg/dL POC Glucose 117 H (80-115) mg/dL Calcium 8.9 (8.5-10.1) mg/dL Magnesium 1.8 (1.8-2.4) mg/dl C-Reactive Protein 4.9 H* (<1.0) mg/dL Med Orders - Current: Current Medications Acetaminophen (Tylenol) 650 mg PO Q4H PRN PRN Reason: Pain (Mild 1-3)/fever Last Admin: 02/11/18 21:12 Dose: 650 mg Aripiprazole (Abilify) 10 mg PO DAILY [facility] Last Admin: 02/11/18 09:48 Dose: 10 mg Bisacodyl (Dulcolax) 5 mg PO DAILY PRN PRN Reason: Constipation Bupropion HCl (Wellbutrin Sr) 100 mg PO TIDAC [facility] Last Admin: 02/12/18 06:41 Dose: 100 mg Cholecalciferol (Vitamin D3) 2,000 units PO DAILY [facility] Last Admin: 02/11/18 09:52 Dose: 2,000 units Cyanocobalamin (Vitamin B12) 500 mcg PO DAILY [facility] Last Admin: 02/11/18 09:52 Dose: 500 mcg Docusate Sodium (Colace) 100 mg PO BID PRN PRN Reason: Constipation Famotidine (Pepcid) 20 mg PO BID [facility] Last Admin: 02/11/18 21:07 Dose: 20 mg Hydrochlorothiazide (Hydrochlorothiazide) 12.5 mg PO ACDINNER [facility] Last Admin: 02/11/18 17:03 Dose: 12.5 mg Hydromorphone HCl (Dilaudid) 0.25 mg IVPUSH Q2H PRN PRN Reason: Pain (severe 7-10) Insulin Human Lispro (Humalog) 0 unit SUBCUT QIDACANDBED [facility]; Protocol Last Admin: 02/12/18 08:07 Dose: Not Given Levothyroxine Sodium (Synthroid) 100 mcg PO ACBREAKFAST [facility] Last Admin: 02/12/18 06:41 Dose: 100 mcg Lisinopril (Prinivil) 10 mg PO ACDINNER [facility] Last Admin: 02/11/18 17:03 Dose: 10 mg Magnesium Hydroxide (Milk Of Magnesia) 30 ml PO Q12H PRN PRN Reason: Constipation Magnesium Sulfate (Pharmacy To Dose - Magnesium Replacement) 0 dose .XX ASDIRECTED PRN PRN Reason: RX TO WATCH MAG LEVELS Metformin HCl (Glucophage) 500 mg PO BIDMEALS [facility] Last Admin: 02/12/18 06:41 Dose: 500 mg Multivitamins (Thera) 1 each PO DAILY [facility] Last Admin: 02/11/18 09:43 Dose: 1 each Naproxen (Naprosyn) 187.5 mg PO BID [facility] Last Admin: 02/11/18 21:07 Dose: 187.5 mg Ondansetron HCl (Zofran Odt) 4 mg PO Q4H PRN PRN Reason: nausea, able to take PO Ondansetron HCl (Zofran) 4 mg IV Q4H PRN PRN Reason: Nausea/Vomiting Oxycodone/Acetaminophen (Percocet 325-5 Mg) 1 tab PO Q4H PRN PRN Reason: Pain (moderate 4-6) Last Admin: 02/11/18 23:19 Dose: 1 tab Polyethylene Glycol (Miralax) 17 gm PO DAILY PRN PRN Reason: Constipation Potassium Chloride (Pharmacy To Dose - Potassium Replacement) 0 dose .XX ASDIRECTED PRN PRN Reason: RX TO WATCH K LEVELS Pramipexole Dihydrochloride (Mirapex) 0.25 mg PO BID [facility] Last Admin: 02/11/18 21:07 Dose: 0.25 mg Rivaroxaban (Xarelto) 15 mg PO BID [facility] Last Admin: 02/11/18 21:06 Dose: 15 mg Senna/Docusate Sodium (Senna Plus) 1 tab PO BID PRN PRN Reason: Constipation Simvastatin (Zocor) 10 mg PO BEDTIME [facility] Last Admin: 02/11/18 21:06 Dose: 10 mg Temazepam (Restoril) 7.5 mg PO BEDTIME PRN PRN Reason: Sleep Last Admin: 02/09/18 20:18 Dose: 7.5 mg Discontinued Medications Bupropion HCl (Wellbutrin Sr) 100 mg PO DAILY@1200 MALIK Bupropion HCl (Wellbutrin Sr) 200 mg PO QAM [facility] Last Admin: 02/10/18 08:50 Dose: 200 mg Bupropion HCl (Wellbutrin Sr) 100 mg PO ONETIME ONE Stop: 02/10/18 12:31 Last Admin: 02/10/18 13:30 Dose: 100 mg Diatrizoate Meglum/Diatrizoate Sod (Gastrografin 37%) 120 ml PO ONETIME ONE Stop: 02/10/18 09:05 Last Admin: 02/10/18 11:53 Dose: 90 ml Hydromorphone HCl (Dilaudid) 0.25 mg IVPUSH Q2H PRN PRN Reason: Pain (severe 7-10) Sodium Chloride (Normal Saline) 250 mls @ 999 mls/hr IV ASDIRECTED [facility] Stop: 02/10/18 12:00 Sodium Chloride (Normal Saline) 100 mls @ 60 mls/hr IV ASDIRECTED [facility] Stop: 02/10/18 13:00 Last Admin: 02/10/18 11:54 Dose: 60 mls/hr Iopamidol (Isovue-300 (61%)) 150 ml IVPUSH ONETIME ONE Stop: 02/10/18 09:05 Last Admin: 02/10/18 11:53 Dose: 125 ml Levothyroxine Sodium (Synthroid) 88 mcg PO ACBREAKFAST [facility] Last Admin: 02/10/18 06:13 Dose: 88 mcg Lorazepam (Ativan) 0.5 mg IVPUSH ONETIME ONE Stop: 02/09/18 23:25 Last Admin: 02/09/18 23:38 Dose: 0.5 mg Magnesium Oxide (Magnesium Oxide) 800 mg PO ONETIME ONE Stop: 02/10/18 09:01 Last Admin: 02/10/18 08:49 Dose: 800 mg Non-Formulary Medication (Calcium Carb/Mag Ox/Zinc Sulf [Qohbqir-Abwvtcmfj-Wqph Tablet]) 1 tab PO BEDTIME [facility] Last Admin: 02/10/18 13:22 Dose: Not Given Non-Formulary Medication (Melatonin ) 1 tab PO BEDTIME [facility] Pramipexole Dihydrochloride (Mirapex) 0.25 mg PO ONETIME ONE Stop: 02/10/18 23:24 Pramipexole Dihydrochloride (Mirapex) 0.25 mg PO ONETIME ONE Stop: 02/09/18 23:46 Last Admin: 02/09/18 23:38 Dose: 0.25 mg Rivaroxaban (Xarelto) 20 mg PO ONETIME ONE Stop: 02/09/18 15:10 Last Admin: 02/09/18 15:33 Dose: 20 mg Sertraline HCl (Zoloft) 100 mg PO BEDTIME [facility] Last Admin: 02/09/18 20:12 Dose: 100 mg Sodium Chloride (Saline Flush) 10 ml FLUSH ONETIME PRN PRN Reason: IV FLUSH Stop: 02/10/18 11:00 Temazepam (Restoril) 7.5 mg PO ONETIME ONE Stop: 02/09/18 23:26 Last Admin: 02/09/18 23:38 Dose: 7.5 mg - Exam Quality Assessment: Reports: Supplemental Oxygen General: Reports: Alert, Oriented, Cooperative, No Acute Distress, Other ( Morbidly Obese) HEENT: Reports: Pupils Equal, Pupils Reactive, EOMI, Mucous Membr. Moist/[place] Neck: Reports: Supple, Trachea Midline, No JVD, No Thyromegaly, Other (short and thick) Lungs: Reports: Clear to Auscultation, Normal Respiratory Effort Cardiovascular: Reports: Regular Rate, Regular Rhythm GI/Abdominal Exam: Normal Bowel Sounds, Non-Tender, No Organomegaly, No Distention, No Abnormal Bruit, No Mass, Other (Obese) (Female) Exam: Deferred Rectal (Female) Exam: Deferred Back Exam: Reports: Normal Inspection, Decreased Range of Motion Extremities: Normal Inspection, Normal Range of Motion, Non-Tender, No Pedal Edema, Normal Capillary Refill Skin: Reports: Warm, Dry, Intact Neurological: Reports: No New Focal Deficit Psy/Mental Status: Reports: Alert, Normal Affect, Normal Mood
[2018-02-12] MEDS: Famotidine 20 MG Tab PO SCH (09:58)
[2018-02-12] MEDS: Cholecalciferol (Vitamin D3) 1,000 Unit Tab PO SCH (09:58)
[2018-02-12] MEDS: Pramipexole 0.25 MG Tab PO SCH (09:58)
[2018-02-12] MEDS: ARIPiprazole 10 MG Tab PO SCH (09:58)
[2018-02-12] MEDS: Multivitamins,Therapeutic Tab PO SCH (09:58)
[2018-02-12] MEDS: Cyanocobalamin (Vitamin B12) 1,000 MCG Tab PO SCH (09:59)
[2018-02-12] MEDS: Rivaroxaban 10 MG Tab PO SCH (09:59)
--- NOTE | 2018-02-12 10:25 | PCM.SN ---
- Free Text/Narrative Note: UNFORTUNATELY DISCHARGE MEDICATIONS WERE INCOMPLETE AND NEEDED TO WRITE A PRESCRIPTION FOR GLUCOSE TESTING STRIPS, LANCET AND CONTOUR NEXT METER.
== END 2018-02-12 13:06 | disposition home or self-care (01) | DRG 134 ==
LOC: JD.ED 14:44 → JD.MS 16:45
PROVIDERS: ADMIT Internal Medicine; ATTEND Internal Medicine
DX: I26.99 Other pulmonary embolism without acute cor pulmonale (principal); I47.2 Ventricular tachycardia; I27.29 Other secondary pulmonary hypertension; I27.20 Pulmonary hypertension, unspecified; E88.81 Metabolic syndrome and other insulin resistance; E66.2 Morbid (severe) obesity with alveolar hypoventilation; Z68.42 Body mass index [BMI] 45.0-49.9, adult; E83.42 Hypomagnesemia; K76.0 Fatty (change of) liver, not elsewhere classified; I82.411 Acute embolism and thrombosis of right femoral vein; I82.432 Acute embolism and thrombosis of left popliteal vein; I10 Essential (primary) hypertension; F31.9 Bipolar disorder, unspecified; G47.00 Insomnia, unspecified; E03.9 Hypothyroidism, unspecified; R09.02 Hypoxemia; E11.9 Type 2 diabetes mellitus without complications; H26.9 Unspecified cataract; R35.0 Frequency of micturition; M19.90 Unspecified osteoarthritis, unspecified site; G25.81 Restless legs syndrome; F41.9 Anxiety disorder, unspecified; R79.1 Abnormal coagulation profile; Z96.659 Presence of unspecified artificial knee joint; Z79.899 Other long term (current) drug therapy
CPT/HCPCS: 36415; 74177; 74177-26; 80048; 80053; 80061; 81001; 82044; 82962; 83036; 83735; 83880; 84439; 84443; 85025; 85240; 85245; 85246; 85300; 85303; 85610; 85613; 85730; 86140; 86147; 93010; 93306; 93970; 93970-26; 94762; 97161-GP; 97165-GO; 99285-25; A9270-GY; J2060; J7030; Q9967